=== PATIENT | female | born 1940 | race Hispanic/Latino ===

== ENCOUNTER 2024-03-07 17:48 | Inpatient (IN) | payer MEDICARE, OTHER ==
[~2024-03-07] VITALS: Ht 149.9 cm; Wt 52.6 kg
[~2024-03-07 17:48] MED LIST: AEC81 PO; CHOL200059 PO; CLOP75TA32 PO; CYAN100084 PO; FISH1CAP49 PO; LISI40TA9 PO; MULT-1039 PO; SIMV-43 PO; VITA400T9 PO
--- NOTE | 2024-03-07 18:00 | NUR ---
PT JUST NOW PLACED IN MY ED BED 9 BY [facility]
--- NOTE | 2024-03-07 18:18 | NUR ---
EMS: NTG SL X 1 ASA 324MG
[2024-03-07] MEDS: LAbetaLOL 20MG SYG IV ONE (18:21)
[2024-03-07 18:24] LABS: BASOPHILS # (AUTO) 0.06 K/uL (0.00-0.20); BASOPHILS % (AUTO) 0.8 % (0.0-5.0); EOSINOPHILS # (AUTO) 0.16 K/uL (0.00-0.70); EOSINOPHILS % (AUTO) 2.2 % (0.0-8.0); HEMATOCRIT 42.6 % (36-48); IMMATURE GRANULOCYTE ABSOLUTE 0.03 K/uL (0-1); LYMPHOCYTES % (AUTO) 26.6 % (21.0-51.0); MEAN CORPUSCULAR HEMOGLOBIN 28.9 pg (27.0-33.0); MEAN CORPUSCULAR HGB CONC 32.9 g/dL (32.0-36.0); MONOCYTES # (AUTO) 0.7 K/uL (0.1-1.0); MONOCYTES % (AUTO) 9.9 % (3.0-13.0); NEUTROPHILS # (AUTO) 4.4 K/uL (1.8-7.7); NEUTROPHILS % (AUTO) 60.1 % (40.0-77.0); PLATELET COUNT (AUTO) 243 K/uL (130-400); RED BLOOD CELL COUNT(AUTO) 4.84 MIL/uL (4.00-5.50); RED CELL DISTRIBUTION WIDTH 12.5 % (11.0-15.5); WHITE BLOOD COUNT (AUTO) 7.4 K/uL (4.8-10.8)
[2024-03-07 18:36] LABS: CREATININE 0.9 mg/dL (0.5-1.0); POTASSIUM 3.8 mmol/L (3.5-5.1)
[2024-03-07 18:51] LABS: B-TYPE NATRIURETIC PEPTIDE 58 pg/mL (0-100)
[2024-03-07 18:56] LABS: MAGNESIUM 2.1 mg/dL (1.80-2.40)
--- NOTE | 2024-03-07 19:09 | NUR ---
REPORT ENDORSED TO JJ HODGE
[2024-03-07 19:12] LABS: APPEARANCE,URINE CLEAR (CLEAR); BILIRUBIN,URINE NEGATIVE (NEGATIVE); COLOR,URINE COLORLESS (YELLOW); GLUCOSE, URINE (UA) 50 mg/dL (NEGATIVE); KETONES,URINE NEGATIVE (NEGATIVE); LEUKOCYTE ESTERASE ,URINE NEGATIVE Leu/uL (NEGATIVE); NITRATE,URINE NEGATIVE (NEGATIVE); OCCULT BLOOD,URINE NEGATIVE (NEGATIVE); PH,URINE 7.5 (5.0-8.0); PROTEIN,URINE 30 mg/dL (NEGATIVE); UROBILINOGEN,URINE 0.2 mg/dL (0.2-1.0)
[2024-03-07 19:21] LABS: ADD UA MICROSCOPIC YES
--- NOTE | 2024-03-07 19:22 | HMCIMG ---
CHEST 1VW HISTORY: Chest pain COMPARISON: January 09, 2014 FINDINGS: A frontal projection of the chest was obtained. Prominent interstitial markings are seen. The heart is normal in size. Degenerative changes are seen. Aortic calcifications are seen. Degenerative changes are seen. IMPRESSION: 1. Prominent interstitial markings. Degenerative changes are seen.
[2024-03-07] MEDS ORDERED: HEParin 25,000 UNITS/250ML D5W 250 ML IV SCH (20:30)
--- NOTE | 2024-03-07 20:51 | NUR ---
ROSALIO COOPER HOLD HEPARIN IV FOR NOW.
--- NOTE | 2024-03-07 21:01 | ERN ---
General Chief Complaint: Chest Pain Stated Complaint: CHEST PAIN Time Seen by MD: 17:53 Time Seen by Midlevel: 17:53 Source: patient History of Present Illness Initial Comments Patient is an 83-year-old female with a past medical history of hypertension and hyperlipidemia presenting to the emergency department via EMS for evaluation of chest pain. Patient states she had walked outside of her home through [address] when she developed left-sided chest pain that radiates to her back. She immediately called 911. She was found to have a blood pressure of over 230 on scene. She was given nitroglycerin sublingual with improvement of chest pain. Initial blood pressure on arrival was 232/93. She states she usually takes losartan and metoprolol at home but usually takes him at night. She has not taken her blood pressure medication today. Denies having a history of atrial fibrillation. She does report having a cardiac stent placed several years ago. Patient was followed by guncotton packer Dr. Carlo Bassett Home Meds: Losartan and metoprolol Allergies: Coded Allergies: No Known Drug Allergies (Unverified Allergy, Unknown, 01/09/14) Home Meds Reported Medications Cholecalciferol (Vitamin D3) (Vitamin D-3) 2,000 Unit Tablet, 2000 UNIT PO DAILY, TAB 01/10/14 Vitamin E Mixed (Vitamin E) 400 Unit Tablet, 400 UNIT PO DAILY, TAB 01/10/14 Cyanocobalamin (Vitamin B-12) (B-12) 1,000 Mcg Tablet.er, 1000 MCG PO DAILY, TAB 01/10/14 Aspirin (ASPIRIN 81 MG ECTAB) 81 Mg Ectab, 81 MG PO HS, TAB.EC 01/10/14 Multivit with Calcium,Iron,Min (Women's Daily Multivitamin) 1 Each Tablet, 1 EACH PO DAILY, TAB 01/10/14 [place]-3 Fatty Acids/Fish Oil (Fish Oil 1,000 mg Capsule) 1 Each Capsule, 1 EACH PO DAILY, CAP 01/10/14 Simvastatin (Simvastatin) 20 Mg Tablet, 20 MG PO HS, #90 01/10/14 Lisinopril (Lisinopril) 40 Mg Tablet, 40 MG PO HS, #90 01/10/14 Clopidogrel Bisulfate (Clopidogrel) 75 Mg Tablet, 75 MG PO DAILY, #30 01/10/14 Past Medical History Past Medical History: High Cholesterol, Heart Disease, Hypertension Past Surgical History: CABG ROS Dictation CONSTITUTIONAL: Negative except for HPI HEAD/FACE: Negative except for HPI EENT: Negative except for HPI RESPIRATORY: Negative except for HPI GASTROINTESTINAL/ABDOMINAL: Negative except for HPI GENITOURINARY: Negative except for HPI MUSCULOSKELETAL: Negative except for HPI INTEGUMENTARY: Negative except for HPI NEUROLOGICAL/PSYCH: Negative except for HPI HEMATOLOGIC/LYMPHATIC: Negative except for HPI All Systems Negative, Except as noted above. 13 point review of systems assessed and all negative except for above. Physical Exam Physical Exam Dictation Vital Signs reviewed General Appearance: Alert, oriented x 3, no acute distress, well developed, nourished. Head and Face: non-traumatic. Eyes: PERRL, pink conjunctivas, eyelid no trauma, anterior chamber with arcus senilis. Ears: Pinnas intact and no signs of trauma or erythema ear canals clear and no discharge TM no erythema Nose: No discharge, no bleeding. Oropharynx: Mouth normal, tongue pink, pharynx clear,no erythema, tonsils no exudates, no abscesses noted, mucous membrane moist Neck: Supple, non-tender, no thyromegaly, no masses, no JVD, no bruits Breast:Deferred Chest:No tenderness, no crepitus, no paradoxical movement, no retractions Lungs:Clear, well-ventilated, symmetric, no rales, no wheezing, no rhonchi, no stridor, good breath sounds bilaterally Heart: Regular rate, regular rhythm, no murmur, no gallops Vascular: no peripheral edema, Abdomen: Soft, positive bowel sounds, nondistended, no guarding, nontender, no rebound, no masses no hepatomegaly, no splenomegaly, no Bartlett's sign, no hernias. Rectal: Deferred Genital: Deferred Neurological: Normal speech, motor function intact, sensory function intact Musculoskeletal: Neck nontender, full range of motion, back nontender, full range of motion, Extremities: nontender, full range of motion Skin: Color pink, dry, no turgor, no rash, no lacerations, no abrasions, no contusions. Lymphatic: Deferred Results Laboratory and Microbiology Lab and Micro Result Laboratory Tests Test 03/07/24 18:19 03/07/24 18:46 03/07/24 19:12 White Blood Count 7.4 K/uL (4.8-10.8) Red Blood Count 4.84 MIL/uL (4.00-5.50) Hemoglobin 14.0 g/dL (12.0-16.0) Hematocrit 42.6 % (36-48) Mean Corpuscular Volume 88.0 fL (79-99) Mean Corpuscular Hemoglobin 28.9 pg (27.0-33.0) Mean Corpuscular Hemoglobin Concent 32.9 g/dL (32.0-36.0) Red Cell Distribution Width 12.5 % (11.0-15.5) Platelet Count 243 K/uL (130-400) Mean Platelet Volume 11.2 fL (7.5-10.5) H Immature Granulocyte % (Auto) 0.4 % (0-1) Neutrophils (%) (Auto) 60.1 % (40.0-77.0) Lymphocytes (%) (Auto) 26.6 % (21.0-51.0) Monocytes (%) (Auto) 9.9 % (3.0-13.0) Eosinophils (%) (Auto) 2.2 % (0.0-8.0) Basophils (%) (Auto) 0.8 % (0.0-5.0) Neutrophils # (Auto) 4.4 K/uL (1.8-7.7) Lymphocytes # (Auto) 2.0 K/uL (1.0-4.8) Monocytes # (Auto) 0.7 K/uL (0.1-1.0) Eosinophils # (Auto) 0.16 K/uL (0.00-0.70) Basophils # (Auto) 0.06 K/uL (0.00-0.20) Absolute Immature Granulocyte (auto 0.03 K/uL (0-1) Nucleated Red Blood Cells 0.0 % (0.0-0.19) Sodium Level 140 mmol/L (136-145) Potassium Level 3.8 mmol/L (3.5-5.1) Chloride Level 101 mmol/L (101-111) Carbon Dioxide Level 33 mmol/L (21-32) H Blood Urea Nitrogen 15 mg/dL (7-18) Creatinine 0.9 mg/dL (0.5-1.0) Glomerular Filtration Rate Calc 64 mL/min (>90) Random Glucose 137 mg/dL (70-105) H Total Calcium 9.5 mg/dL (8.5-10.1) Magnesium Level 2.10 mg/dL (1.80-2.40) Total Creatine Kinase 52 U/L (21-232) # Troponin I High Sensitivity 136 ng/L (4-50) *H 383 ng/L (4-50) *H B-Type Natriuretic Peptide 58 pg/mL (0-100) Urine Color COLORLESS (YELLOW) Urine Appearance CLEAR (CLEAR) Urine pH 7.5 (5.0-8.0) Urine Specific [place] 1.005 (1.001-1.031) Urine Protein 30 mg/dL (NEGATIVE) H Urine Glucose (UA) 50 mg/dL (NEGATIVE) H Urine Ketones NEGATIVE mg/dL (NEGATIVE) Urine Occult Blood NEGATIVE (NEGATIVE) Urine Nitrate NEGATIVE (NEGATIVE) Urine Bilirubin NEGATIVE mg/dL (NEGATIVE) Urine Urobilinogen 0.2 mg/dL (0.2-1.0) Urine Leukocyte Esterase NEGATIVE Oksana/uL Urine RBC 2-5 /HPF (0-1) H Urine WBC 2-5 /HPF (0-1) H Urine Bacteria None /HPF (None Seen) Labs Reviewed?: Yes MDM MDM: Patient is an 83-year-old female with a past medical history of hypertension and hyperlipidemia presenting to the emergency department via EMS for evaluation of chest pain. Patient states she had walked outside of her home through [address] when she developed left-sided chest pain that radiates to her back. She immediately called 911. She was found to have a blood pressure of over 230 systolic on scene. She was given nitroglycerin sublingual with improvement of chest pain. Initial blood pressure on arrival was 232/93. She states she usually takes losartan and metoprolol at home but usually takes him at night. She has not taken her blood pressure medication today. Denies having a history of atrial fibrillation. She does report having a cardiac stent placed several years ago. Patient was followed by guncotton packer Dr. Carlo Bassett. On arrival patient is in no acute distress. Her initial blood pressure was 232/93. Patient was given 10 mg of labetalol IV with improvement in blood pressure. Initial EKG showed atrial fibrillation however patient de nies having a history of AFib. She is not on any blood thinners. Repeat blood pressure was 181/78. Her initial blood work was remarkable for an elevated troponin of 136. A repeat troponin was performed 1 hour after the initial one and it appears to be trending upward to 383. Heparin was ordered however was withheld until her blood pressure and chest pain were controlled. She was given another dose of 0.4 mg of nitro sublingual. The case was discussed with benchmark service who agrees to admit the patient for further observation and management. Differential diagnosis: ACS, pneumonia, pneumothorax, Rationale: Tests considered and ordered secondary to shared decision making include: Previous outside records reviewed: Old ER visits. Risk of complication and/or morbidity or mortality of patient management: None Medications-Per medication reconciliation Need for hospitalization: Patient does meet criteria for hospitalization. Need for emergency major/minor surgery: No There are no social concerns with this patient. Prescription drug management Prescriptions will include symptomatic care Patient's prior external medical records from other ER visits were reviewed by me as indicated. Prior testing and results from previous visits were reviewed. Prior tests were taken into account with medical decision making and resource utilization, independent historian/historians were used to obtain complete medical history. I independently interpreted the test that were performed, results were reviewed by me and considered findings on radiology if ordered. Medical management and examination interpretation discussions were had by me with other qualified healthcare professionals as indicated for the patient's care. ED Course Orders Procedure Category Date Status Time 12 Lead Ekg Tracing- EKG 03/07/24 Logged Technical 17:54 B-Type Natriuretic LAB 03/07/24 Complete Peptide 17:54 Cbc With Differential LAB 03/07/24 Complete 17:54 Basic Metabolic Panel LAB 03/07/24 Complete 17:54 Creatine Kinase, Total LAB 03/07/24 Complete 17:54 Magnesium LAB 03/07/24 Complete 17:54 Troponin I High LAB 03/07/24 Complete Sensitivity 17:54 Chest 1vw RAD 03/07/24 Resulted 17:54 Urinalysis Profile LAB 03/07/24 Complete 18:02 Labetalol 20mg Syg PHA 03/07/24 Complete (Trandate 20mg Syg) 18:30 Troponin I High LAB 03/07/24 Complete Sensitivity 18:59 Heparin 25,000 PHA 03/07/24 In Process Units/250ml D5w 20:30 Nitroglycerin 0.4mg PHA 03/07/24 In Process Sl Tab (Nitrostat) 21:00 Current Medications Medications (Trade) Dose Ordered Sig/Osiel Route PRN Reason Start Time Stop Time Status Last Admin Dose Admin Heparin Sodium/ Dextrose 250 ml @ 0 mls/hr PROTOCOL IV 03/07/24 20:30 04/06/24 20:29 Labetalol HCl (TRANdate 20MG SYG) 10 mg ONCE ONCE IV 03/07/24 18:30 03/07/24 18:31 DC 03/07/24 18:21 Nitroglycerin (Nitrostat) 0.4 mg AD PRN SL CHEST PAIN 03/07/24 21:00 04/06/24 20:59 Vital Signs Date Time Temp Pulse Resp B/P (MAP) Pulse Ox O2 Delivery O2 Flow Rate FiO2 03/07/24 20:07 98.4 88 18 98/64 98 Room Air* 0 03/07/24 19:52 75 18 199/84 96 Room Air* 0 03/07/24 19:28 80 18 180/75 95 Room Air* 0 03/07/24 18:52 79 16 181/78 96 Room Air* 0 03/07/24 18:21 232/93 03/07/24 18:17 91 19 232/93 98 Room Air* 0 03/07/24 17:51 98.4 92 20 239/105 98 Room Air [address] [address] IMAGING REPORT Signed PATIENT: LISET JEFF MR#: [id number] : 1940 SEX: F AGE: 83 LOCATION: [facility] ORDER 53 STATUS: REG ER REPORT#: [id number] SERVICE 53 REASON: chest pain ORDERING PHYSICIAN: JANA LUNA PROCEDURE: CXR1VW - CHEST 1VW CHEST 1VW HISTORY: Chest pain COMPARISON: January 09, 2014 FINDINGS: A frontal projection of the chest was obtained. Prominent interstitial markings are seen. The heart is normal in size. Degenerative changes are seen. Aortic calcifications are seen. Degenerative changes are seen. IMPRESSION: 1. Prominent interstitial markings. Degenerative changes are seen. DICTATED BY: FRANK FIGUEROA MD DATE: 03/07/241917 ELECTRONICALLY SIGNED BY: FRANK FIGUEROA MD DATE: 03/07/241921 HEART Score Response (Comments) Value History: High suspicion (+2) 2 EKG: Repolarization changes 1 Age: > 65yrs (+2) 2 Risk Factors: 3+ risk factors (+2) 2 Initial Troponin: 1-3x Normal Limit (+1) 1 HEART Score Risk: High Risk for MACE (7-10) Total 8 DX & DISP Disposition: Inpatient Decision to Admit Date: Mar 07, 2024 Decision to Admit Time: 21:06 Departure Impression: Primary Impression: Elevated troponin Additional Impressions: Hypertensive urgency, New onset atrial fibrillation Condition: Stable Referrals: PETRA HICKS MD (PCP) I have reviewed the case, and I agree with, Diagnosis and Plan I performed the substantive portion of the visit. I have reviewed and personally made and approve the management plan that is documented in the note by myself or the JAVON. I acknowledge for responsibility for the patient's management plan. JANA LUNA Mar 07, 2024 21:01
[2024-03-07] MEDS: NITROGLYCERIN 0.4 MG SL TAB SL PRN (21:07)
[2024-03-07] MEDS ORDERED: acetaMINOPHEN 650 MG SUPPOSITORY RC PRN (22:00)
[2024-03-07] MEDS ORDERED: acetaMINOPHEN 325 MG TAB PO PRN (22:00)
[2024-03-07] MEDS ORDERED: ondanSETRON 4MG INJ IVP PRN (22:00)
[2024-03-07] MEDS ORDERED: TEMAZepam 15 MG CAPSULE PO PRN (22:00)
[2024-03-07] MEDS ORDERED: LACTULOSE 20 GM/30 ML UDCUP PO PRN (22:00)
--- NOTE | 2024-03-07 23:11 | HP ---
[facility] HISTORY & PHYSICAL Date Patient Seen: Mar 07, 2024 Time of Visit: 23:11 Supervising Physician: Dr. Branch Primary Care Physician: PETRA HICKS MD (PCP) Outpatient Specialists: Dr. Carlo Bassett. Inpatient Consults: [facility] PROBLEM LIST: NSTEMI, POA Hypertension emergency, POA Atrial fibrillation, POA Coronary artery disease s/p CABG Hypercholesteremia HPI: Ms. Marcelo is an 83-year-old female with a past medical history of hypertension, hyperlipidemia, CAD with cardiac stent and afib who presented to the emergency department via EMS for evaluation of chest pain. Patient stated she had walked outside of her home through [address] when she developed left-sided chest pain that radiates to her back. She immediately called 911. She was found to have a blood pressure of over 230 on scene. She was given nitroglycerin sublingual with improvement of chest pain. Blood pressure on arrival to ED was 232/93. She stated she takes losartan and metoprolol both every night. She has not taken her blood pressure medication today. Patient reports that she had atrial fibrillation many years ago, but the AFib resolved, and has had AFib since then. Patient was followed by senior java developer Dr. Carlo Bassett. Chest x-ray: Prominent interstitial markings. Degenerative changes are seen. Initial troponin 136, repeat troponin 383. EKG: Atrial fibrillation, heart rate 83. Repeat EKG: Sinus rhythm. ED provider reports that patient was given labetalol 10 mg IV and is going to start heparin drip. ED provider request patient be admitted with the diagnosis of elevated troponins, hypertensive emergency, new onset AFib. I went to assess patient at bedside in ED 9. RN reported that Heparin IV drip was ordered by ALLISON Cline but was cancelled by him, and was not administered because of the very high blood pressure. Patient denied any chest pain. She reports that after the nitro sublingually was administered her pain subsided. The patient mentioned that she had cataract surgery on January 29 and then on February 13, 2024 again. I informed the patient of a labs, diagnostics, and plan of care. The patient verbalized understanding and is in agreement with the plan. Plan and assessment are listed below. PAST MEDICAL HX: see above PAST SURGICAL HX: CABG SOCIAL HISTORY: No tobacco, ETOH, or illicit drug use Coded Allergies: No Known Drug Allergies (Unverified Allergy, Unknown, 01/09/14) REVIEW OF SYSTEMS: 12 point ROS reviewed with patient. Pertinent positives mentioned above. Otherwise negative. PHYSICAL EXAM: GENERAL: alert, weak, awake oriented x 3 HEENT: EOMI, Sclera non icteric, moist mucosa NECK: Supple, no JVD, trachea midline LUNGS: Clear breath sounds bilaterally. No wheezes HEART: Regular rate and rhythm. Normal S1 and S2, without murmurs ABD: Abdomen soft, nontender. Bowel sounds present EXT: No clubbing cyanosis or edema NEURO: Alert and oriented x3, follows commands Vital Signs (last 8hr) Date Time Temp Pulse Resp B/P (MAP) Pulse Ox O2 Delivery O2 Flow Rate FiO2 03/07/24 22:07 71 18 155/63 95 Room Air* 0 03/07/24 21:10 76 18 170/69 96 Room Air* 0 03/07/24 20:07 98.4 88 18 98/64 98 Room Air* 0 03/07/24 19:52 75 18 199/84 96 Room Air* 0 03/07/24 19:28 80 18 180/75 95 Room Air* 0 03/07/24 18:52 79 16 181/78 96 Room Air* 0 03/07/24 18:21 232/93 03/07/24 18:17 91 19 232/93 98 Room Air* 0 03/07/24 17:51 98.4 92 20 239/105 98 Room Air 0 LABS: Hematology Labs: Test 03/07/24 18:19 Range/Units White Blood Count 7.4 4.8-10.8 K/uL Red Blood Count 4.84 4.00-5.50 MIL/uL Hemoglobin 14.0 12.0-16.0 g/dL Hematocrit 42.6 36-48 % Mean Corpuscular Volume 88.0 79-99 fL Mean Corpuscular Hemoglobin 28.9 27.0-33.0 pg Mean Corpuscular Hemoglobin Concent 32.9 32.0-36.0 g/dL Red Cell Distribution Width 12.5 11.0-15.5 % Platelet Count 243 130-400 K/uL Mean Platelet Volume 11.2 H 7.5-10.5 fL Immature Granulocyte % (Auto) 0.4 0-1 % Neutrophils (%) (Auto) 60.1 40.0-77.0 % Lymphocytes (%) (Auto) 26.6 21.0-51.0 % Monocytes (%) (Auto) 9.9 3.0-13.0 % Eosinophils (%) (Auto) 2.2 0.0-8.0 % Basophils (%) (Auto) 0.8 0.0-5.0 % Neutrophils # (Auto) 4.4 1.8-7.7 K/uL Lymphocytes # (Auto) 2.0 1.0-4.8 K/uL Monocytes # (Auto) 0.7 0.1-1.0 K/uL Eosinophils # (Auto) 0.16 0.00-0.70 K/uL Basophils # (Auto) 0.06 0.00-0.20 K/uL Absolute Immature Granulocyte (auto 0.03 0-1 K/uL Nucleated Red Blood Cells 0.0 0.0-0.19 % Chemistry Labs: Test 03/07/24 19:12 03/07/24 18:19 Range/Units Troponin I High Sensitivity 383 *H 4-50 ng/L Sodium Level 140 136-145 mmol/L Potassium Level 3.8 3.5-5.1 mmol/L Chloride Level 101 101-111 mmol/L Carbon Dioxide Level 33 H 21-32 mmol/L Blood Urea Nitrogen 15 7-18 mg/dL Creatinine 0.9 0.5-1.0 mg/dL Glomerular Filtration Rate Calc 64 >90 mL/min Random Glucose 137 H 70-105 mg/dL Total Calcium 9.5 8.5-10.1 mg/dL Magnesium Level 2.10 1.80-2.40 mg/dL Total Creatine Kinase 52 # 21-232 U/L B-Type Natriuretic Peptide 58 0-100 pg/mL DIAGNOSTICS / RADIOLOGY RESULTS: [ ] PLAN Admit patient to PCCU with continuous telemetry monitoring. Start heparin IV drip per protocol. Nitroglycerin 1 inch to chest wall q.8 hours. Aspirin 324 mg p.o. now, then aspirin 81 mg p.o. daily. Atorvastatin 40 mg p.o. daily. Resume home medications: Metoprolol and losartan. Troponin levels and EKGs series. Cardiology consult in the a.m.. 2D echo in the a.m. with heart clinic to read. P.r.n. medications for pain management, fever, nausea, vomiting, constipation, hypertension. Oxygen supplementations as needed to maintain oxygen levels equal to or greater than 92%. Blood pressure checks every4 hours and as needed. Reconcile home medications once available. Glucometer checks before meals and at bedtime with insulin regular sliding scale. Monitor renal and liver function, monitor electrolytes and treat accordingly. A.m. labs: CBC, BNP, troponin, Mag, phos, A1c, TSH. DVT and GI prophylaxis: Heparin and Pepcid. NEURO: Minimize central acting medications as possible. Maintain fall precautions, adequate lighting during the day PULMONARY: Supplemental 02 as needed. Maintain aspiration precautions at all times CARDIOVASCULAR: Follow hemodynamics. Vital signs per facility protocol GI & NUTRITION: Continue with nutritional support. Continue stool softeners and laxatives as needed. KIDNEYS & ELECTROLYTES: Strict monitoring of intake, output and overall fluid balance. Avoid nephrotoxic medications to the extent possible. Medications to be dosed according to renal function. Monitor electrolytes and replace as needed ENDOCRINE: Maintain blood glucose between 100-180 at all times. Hypoglycemia protocol in place INFECTIOUS DISEASE: Trend temperature, WBC and procalcitonin level Follow cultures, deescalate antibiotics as soon as possible. Panculture if new onset fever ONCOLOGY/HEMATOLOGY/COAGULATION: Monitor for s/s of bleeding Monitor hemoglobin, coagulation studies as needed SKIN: Pressure ulcer prevention per facility protocol Specialty mattress ORTHO/REHAB: Continue PT/OT Prophylaxis: Continue GI and DVT prophylaxis Code Status: Full Resuscitation Disposition: CROW BRADY Mar 07, 2024 23:11
[2024-03-07] MEDS: NITROGLYCERIN 1GM OINT 1 INCH/1GM TD SCH (23:40)
[2024-03-07] MEDS: ASPIRIN 81MG CHEW TAB PO ONE (23:40)
[2024-03-07] MEDS: atorVAStatin 40 MG TABLET PO SCH (23:40)
[2024-03-08 04:16] LABS: HEMATOCRIT 38.6 % (36-48); MEAN CORPUSCULAR HEMOGLOBIN 29.8 pg (27.0-33.0); MEAN CORPUSCULAR HGB CONC 33.4 g/dL (32.0-36.0); MEAN CORPUSCULAR VOLUME 89.1 fL (79-99); RED BLOOD CELL COUNT(AUTO) 4.33 MIL/uL (4.00-5.50); RED CELL DISTRIBUTION WIDTH 12.6 % (11.0-15.5)
[2024-03-08 04:47] LABS: CREATININE 0.8 mg/dL (0.5-1.0); MAGNESIUM 2.1 mg/dL (1.80-2.40); PHOSPHORUS 3.8 mg/dL (2.5-4.9); POTASSIUM 4.1 mmol/L (3.5-5.1); THYROID STIMULATING HORMONE 1.58 uIU/mL (0.36-3.74)
[2024-03-08] MEDS: HEParin 5,000 UNIT VIAL IV SCH (05:14)
[2024-03-08] MEDS: HEParin 25,000 UNITS/250ML D5W 250 ML IV SCH (05:20)
[2024-03-08 05:51] LABS: INR 1.03 (0.85-1.15); PROTHROMBIN TIME 11.1 SEC (9.6-11.6)
[2024-03-08 05:52] LABS: PARTIAL THROMBOPLASTIN TIME 27.9 SEC (26.3-35.5)
--- NOTE | 2024-03-08 06:53 | EKG ---
[facility] Test Date: 2024-03-08 Test Time: 03:53:46 Pat Name: LISET JEFF Department: [facility] Room: 230 Gender: F Interventional Physician: [id number] : 1940 Requested By: CROW JONAS Order Number: [id number] Reading MD: Luis Miguel Santiago Measurements Intervals [place] Rate: 67 P: 52 CT: 189 QRS: 40 QRSD: 93 T: 61 QT: 424 QTc: 449 Interpretive Statements Sinus rhythm Low voltage, precordial leads Compared to ECG 03/07/2024 17:36:33 Low QRS voltage now present Atrial fibrillation no longer present Electronically Signed On 03-11-2024 17:21:33 POLE PEELING MACHINE OPERATOR HELPER by Luis Miguel Santiago Please click the below link to view image of tracing.
--- NOTE | 2024-03-08 06:53 | EKG ---
[facility] Test Date: 2024-03-07 Test Time: 17:36:33 Pat Name: LISET JEFF Department: [facility] Room: 230 Gender: F Band Scroll Saw Operator: [id number] : 1940 Requested By: JANA LUNA Order Number: [id number] Reading MD: Luis Miguel Santiago Measurements Intervals [place] Rate: 83 P: 0 PA: 0 QRS: 86 QRSD: 99 T: 60 QT: 380 QTc: 448 Interpretive Statements Normal Sinus Rhythm STT abnormality, possible ischemia No previous ECG available for comparison Electronically Signed On 03-11-2024 17:18:29 SUPERINTENDENT NONSELLING by Luis Miguel Santiago Please click the below link to view image of tracing.
[2024-03-08] MEDS: INSULIN humuLIN R 100 UNIT/ML 3ML SQ SCH (07:30)
--- NOTE | 2024-03-08 07:45 | NUR ---
[facility] [employer] NOTIFIED RENEE SIMON CHEMICAL SALES REPRESENTATIVE called back notified of elevated tropinion new orders given
[2024-03-08 08:00] VITALS: BP 158/65; PULSE 74; RESP 20; TEMP 98.1
--- NOTE | 2024-03-08 08:25 | NUR ---
Aparna Talbert NP from Dr Espinoza notified of consult
[2024-03-08] MEDS: metoPROLOL tartRATE 50 MG TAB PO SCH (09:40)
[2024-03-08] MEDS: ASPIRIN 81MG CHEW TAB PO SCH (09:43)
[2024-03-08 11:22] LABS: INR 1.11 (0.85-1.15); PROTHROMBIN TIME 11.9 SEC (9.6-11.6)
[2024-03-08 11:47] LABS: PARTIAL THROMBOPLASTIN TIME > 139.0 SEC (26.3-35.5)
--- NOTE | 2024-03-08 11:50 | NUR ---
DR ESTEVEZ WEAVING SUPERVISOR AT BEDSIDE
--- NOTE | 2024-03-08 11:51 | CONS ---
Cardiology Consult Note Attending Clinical Business Manager: Dr. Surjit Espinoza Primary Clinical Business Manager: Dr. Carlo Bassett Consulting Physician: [facility] Date of Service: 03/08/2024 Reason for Consult: ACS-NSTEMI HPI: This is an 83y/o female with a past medical history of HTN, HLP, CAD s/p PCI with MOY placement (Promus 2.5x24 mm) done on 01/10/2014, chronically occluded LICA, and PAD who presents with chest pain of 1 day in duration. The symptoms began spontaneously and over the ensuing timeframe her symptoms were constant and progressively worsened. The symptoms developed after the patient took out the trash and the pain was described as pressure like in quality, 8/10 in intensity, and radiated to the back, left shoulder, and left neck/jaw. The symptoms were persistent for > 1 hours and were not exacerbated or alleviated by anything. Associated symptoms include uncontrolled blood pressure (SBP>220 mmHg). Pertinent negatives include headache, dizziness, syncope, palpitations, shortness of breath, PND, orthopnea, abdominal pain, nausea, vomiting, weight gain, lower extremity swelling, diaphoresis, fever, or chills. The patient's progression of symptoms prompted her to seek a higher level of care. While in the ED, laboratory data identified an elevated HS troponin I level. Cardiology was consulted for treatment recommendations. PMH: Listed above PSH: Listed above FH: Significant for HTN, HLP, DMII SH: Denies alcohol, tobacco, or illicit drug use. Allergies: Coded Allergies: No Known Drug Allergies (Unverified Allergy, Unknown, 01/09/14) Review of systems: General: Denies fever or chills. HEENT: Denies changes in vision, earache or sore throat. Neck: Denies pain or stiffness. Cardio: As per the HPI Pulm: Denies SOB, coughing or wheezing. GI: Denies abdominal pain, nausea, vomiting, diarrhea, or constipation. MSK: Denies decreased ROM or joint pain. Heme: Denies anemia, easy bruising, or bleeding. Neuro: Denies headache, dizziness, or syncope. Psyche: Denies anxiety, depression, or suicidal ideation. Physical Exam: Vital Signs Date Time Temp Pulse Resp B/P (MAP) Pulse Ox O2 Delivery O2 Flow Rate FiO2 03/08/24 09:50 90 14 146/60 95 Room Air* 0 21 03/08/24 08:00 98.1 General: Alert and oriented x 3. NAD. HEENT: NC/AT. Oral mucosa is moist. Neck: No masses, JVD, or carotid bruits. Lungs: NRD. SCM. Bilateral air entry. CTA. No obvious wheezing, rales or rhonchi. Cardio: Regular rate. Normal S1 and S2. +S4. No obvious murmurs, gallops, or rubs noted. PMI was not displaced. Abdomen: Soft. NT. ND. Normal active bowel sounds x 4 quadrants. Extremities: No edema, clubbing, or cyanosis. Diminished pulses noted throughout. Neuro: CN II-XII were grossly intact. No obvious focal deficits. Labs: Laboratory Tests Test 03/07/24 18:19 03/07/24 18:46 03/07/24 19:12 03/08/24 03:49 Range/Units White Blood Count 7.4 8.0 4.8-10.8 K/uL Red Blood Count 4.84 4.33 4.00-5.50 MIL/uL Hemoglobin 14.0 12.9 12.0-16.0 g/dL Hematocrit 42.6 38.6 36-48 % Mean Corpuscular Volume 88.0 89.1 79-99 fL Mean Corpuscular Hemoglobin 28.9 29.8 27.0-33.0 pg Mean Corpuscular Hemoglobin Concent 32.9 33.4 32.0-36.0 g/dL Red Cell Distribution Width 12.5 12.6 11.0-15.5 % Platelet Count 243 226 130-400 K/uL Mean Platelet Volume 11.2 H 11.6 H 7.5-10.5 fL Immature Granulocyte % (Auto) 0.4 0-1 % Neutrophils (%) (Auto) 60.1 40.0-77.0 % Lymphocytes (%) (Auto) 26.6 21.0-51.0 % Monocytes (%) (Auto) 9.9 3.0-13.0 % Eosinophils (%) (Auto) 2.2 0.0-8.0 % Basophils (%) (Auto) 0.8 0.0-5.0 % Neutrophils # (Auto) 4.4 1.8-7.7 K/uL Lymphocytes # (Auto) 2.0 1.0-4.8 K/uL Monocytes # (Auto) 0.7 0.1-1.0 K/uL Eosinophils # (Auto) 0.16 0.00-0.70 K/uL Basophils # (Auto) 0.06 0.00-0.20 K/uL Absolute Immature Granulocyte (auto 0.03 0-1 K/uL Nucleated Red Blood Cells 0.0 0.0 0.0-0.19 % Sodium Level 140 143 136-145 mmol/L Potassium Level 3.8 4.1 3.5-5.1 mmol/L Chloride Level 101 105 101-111 mmol/L Carbon Dioxide Level 33 H 33 H 21-32 mmol/L Blood Urea Nitrogen 15 15 7-18 mg/dL Creatinine 0.9 0.8 0.5-1.0 mg/dL Glomerular Filtration Rate Calc 64 74 >90 mL/min Random Glucose 137 H 121 H 70-105 mg/dL Total Calcium 9.5 9.3 8.5-10.1 mg/dL Magnesium Level 2.10 2.10 1.80-2.40 mg/dL Total Creatine Kinase 52 # 21-232 U/L Troponin I High Sensitivity 136 *H 383 *H 5138 *H 4-50 ng/L B-Type Natriuretic Peptide 58 0-100 pg/mL Urine Color COLORLESS YELLOW Urine Appearance CLEAR CLEAR Urine pH 7.5 5.0-8.0 Urine Specific [place] 1.005 1.001-1.031 Urine Protein 30 H NEGATIVE mg/dL Urine Glucose (UA) 50 H NEGATIVE mg/dL Urine Ketones NEGATIVE NEGATIVE mg/dL Urine Occult Blood NEGATIVE NEGATIVE Urine Nitrate NEGATIVE NEGATIVE Urine Bilirubin NEGATIVE NEGATIVE mg/dL Urine Urobilinogen 0.2 0.2-1.0 mg/dL Urine Leukocyte Esterase NEGATIVE NEGATIVE Oksana/uL Urine RBC 2-5 H 0-1 /HPF Urine WBC 2-5 H 0-1 /HPF Urine Bacteria None None Seen /HPF Phosphorus Level 3.8 2.5-4.9 mg/dL Thyroid Stimulating Hormone (TSH) 1.58 0.36-3.74 uIU/mL Test 03/08/24 05:25 03/08/24 09:43 Range/Units Prothrombin Time 11.1 11.9 H 9.6-11.6 SEC Prothromb Time International Ratio 1.03 1.11 0.85-1.15 Activated Partial Thromboplast Time 27.9 Pending Troponin I High Sensitivity 3362 *H 4-50 ng/L Assessment: -ACS-NSTEMI -Hypertensive emergency -CAD s/p PCI with MOY placement (Promus 2.5x24 mm) done on 01/10/2014 -HTN -HLP -Chronically occluded LICA -PAD Plan: 1. ACS-NSTEMI -Stable -Cardiac enzymes-HS troponin I: 136>383>5138>3362 -The patient presents with chest pain of 1 day in duration with associated uncontrolled HTN. -The above mentioned findings are diagnostic for ACS-NSTEMI. As a result, we will start her on goal directed ACS-NSTEMI treatment which includes aspirin 81 mg daily, clopidogrel 300 mg x 1 followed by 75 mg daily, IV heparin infusion (ACS protocol), metoprolol succinate 50 mg daily, nitro ointment Q8H, and atorvastatin 40 mg QHS. -In order to further evaluate her symptoms, we will refer her for a C/coronary angiogram with possible intervention. The risks and benefits of the procedure have been explained to the patient and she wishes to proceed. -The procedure will be schedule for tomorrow, to be done by Dr. Carlo Bassett or another [facility] associate. -Please keep the patient NPO after midnight and the IV heparin infusion will be stopped by the [employer] staff when they come pick the patient up for the procedure. -In addition, a 2D echocardiogram has been ordered to assess the patient's s ystolic/diastolic function and for any wall motion abnormalities. 2. Hypertensive emergency -End organ damage: ACS/elevated troponin -Peak BP: 239/105 mmHg -The patient will continue on losartan 100 mg daily and metoprolol succinate 50 mg daily. Antihypertensive therapy should be titrated in order to achieve a BP goal of less than 160/90 mmHg within the first 6 hours and less than 140/90 mmHg within 24-48 hours. Thank you for this interesting consult and allowing us to participate in the care of your patient. This case was discussed with my Supervising Physician, Dr. Surjit Espinoza, and the above mentioned plan was formulated and agreed upon. -Consult Note written by Reyna Mcdonough, MSN, VP [employer] A[employer]AIRS, AGACNP-BC. REYNA MCDONOUGH NP Mar 08, 2024 11:51
--- NOTE | 2024-03-08 12:01 | NUR ---
HEPARIN ON HOLD FOR 60MIN PER HEPARIN PROTOCOL
--- NOTE | 2024-03-08 12:15 | NUR ---
[employer] AT BEDSIDE WITH PT
--- NOTE | 2024-03-08 13:00 | NUR ---
HEPARIN RESTARTED PER PROTOCOL
[2024-03-08] MEDS: cloPIDOgrel 300MG TAB PO ONE (13:24)
[2024-03-08 14:18] VITALS: BP 144/73; PULSE 77; RESP 20; TEMP 98
[2024-03-08 16:00] VITALS: BP 144/69; PULSE 72; RESP 20; TEMP 98
--- NOTE | 2024-03-08 16:15 | PN ---
[facility] PROGRESS NOTE Date Patient Seen: Mar 08, 2024 Time of Visit: 1220 Supervising Physician: Dr. Branch Primary Care Physician: PETRA HICKS MD (PCP) Outpatient Specialists: Dr. Carlo Bassett. Inpatient Consults: [facility] PROBLEM LIST: ACS-NSTEMI, POA Hypertension emergency, POA Atrial fibrillation, POA Coronary artery disease s/p CABG Hypercholesteremia CAD s/p PCI with MOY placement 01/21/2014 INTERVAL HISTORY: 03/08 patient was seen and examined by bedside with family present. Patient is awake alert able to answer simple questions appropriately. At time of visit patient is on room air appears to be tolerating well. Patient denies any reoccurrence chest pain, denies any shortness of breadth. Patient is troponin level noted to be trending down peaked at 5138 and now trended down to 3362. Patient to continue on heparin drip. As per Cardiology plan is for a left heart catheterization with possible intervention scheduled tomorrow 01/08/2024. Appreciate cardiology's assistance we will follow recommendations. REVIEW OF SYSTEMS: 12 point ROS reviewed with patient. Pertinent positives mentioned above. Otherwise negative. PHYSICAL EXAM: GENERAL: alert, weak, awake oriented x 3 HEENT: EOMI, Sclera non icteric, moist mucosa NECK: Supple, no JVD, trachea midline LUNGS: Clear breath sounds bilaterally. No wheezes HEART: Regular rate and rhythm. Normal S1 and S2, without murmurs ABD: Abdomen soft, nontender. Bowel sounds present EXT: No clubbing cyanosis or edema NEURO: Alert and oriented x3, follows commands Vital Signs (last 8hr) Date Time Temp Pulse Resp B/P (MAP) Pulse Ox O2 Delivery O2 Flow Rate FiO2 03/08/24 14:18 98.1 77 20 144/73 96 Room Air 03/08/24 13:54 98.1 78 14 133/58 96 Room Air* 0 21 03/08/24 09:50 90 14 146/60 95 Room Air* 0 21 LABS: Hematology Labs: Test 03/08/24 03:49 03/07/24 18:19 Range/Units White Blood Count 8.0 4.8-10.8 K/uL Red Blood Count 4.33 4.00-5.50 MIL/uL Hemoglobin 12.9 12.0-16.0 g/dL Hematocrit 38.6 36-48 % Mean Corpuscular Volume 89.1 79-99 fL Mean Corpuscular Hemoglobin 29.8 27.0-33.0 pg Mean Corpuscular Hemoglobin Concent 33.4 32.0-36.0 g/dL Red Cell Distribution Width 12.6 11.0-15.5 % Platelet Count 226 130-400 K/uL Mean Platelet Volume 11.6 H 7.5-10.5 fL Nucleated Red Blood Cells 0.0 0.0-0.19 % Immature Granulocyte % (Auto) 0.4 0-1 % Neutrophils (%) (Auto) 60.1 40.0-77.0 % Lymphocytes (%) (Auto) 26.6 21.0-51.0 % Monocytes (%) (Auto) 9.9 3.0-13.0 % Eosinophils (%) (Auto) 2.2 0.0-8.0 % Basophils (%) (Auto) 0.8 0.0-5.0 % Neutrophils # (Auto) 4.4 1.8-7.7 K/uL Lymphocytes # (Auto) 2.0 1.0-4.8 K/uL Monocytes # (Auto) 0.7 0.1-1.0 K/uL Eosinophils # (Auto) 0.16 0.00-0.70 K/uL Basophils # (Auto) 0.06 0.00-0.20 K/uL Absolute Immature Granulocyte (auto 0.03 0-1 K/uL Chemistry Labs: Test 03/08/24 14:45 03/08/24 12:48 03/08/24 03:49 03/07/24 18:19 Range/Units Troponin I High Sensitivity 3110 *H 4-50 ng/L Whole Blood Glucose 177 H 70-110 MG/DL Bedside Glucose Comment Notified Nurse Sodium Level 143 136-145 mmol/L Potassium Level 4.1 3.5-5.1 mmol/L Chloride Level 105 101-111 mmol/L Carbon Dioxide Level 33 H 21-32 mmol/L Blood Urea Nitrogen 15 7-18 mg/dL Creatinine 0.8 0.5-1.0 mg/dL Glomerular Filtration Rate Calc 74 >90 mL/min Random Glucose 121 H 70-105 mg/dL Total Calcium 9.3 8.5-10.1 mg/dL Phosphorus Level 3.8 2.5-4.9 mg/dL Magnesium Level 2.10 1.80-2.40 mg/dL Thyroid Stimulating Hormone (TSH) 1.58 0.36-3.74 uIU/mL Total Creatine Kinase 52 # 21-232 U/L B-Type Natriuretic Peptide 58 0-100 pg/mL Coagulation Labs: Test 03/08/24 09:43 Range/Units Prothrombin Time 11.9 H 9.6-11.6 SEC Prothromb Time International Ratio 1.11 0.85-1.15 Activated Partial Thromboplast Time > 139.0 #*H 26.3-35.5 SEC DIAGNOSTICS / RADIOLOGY RESULTS: na PLAN Continue tele monitoring Continue heparin IV drip per protocol. Nitroglycerin 1 inch to chest wall q.8 hours. Continue [id number] mg daily Continue [id number] mg daily Atorvastatin 40 mg p.o. daily. As per cardiology's scheduled for left heart catheterization possible intervention, continue losartan 100 mg daily metoprolol succinate mg daily 2D echo in the a.m., pending P.r.n. medications for pain management, fever, nausea, vomiting, constipation, hypertension. Oxygen supplementations as needed to maintain oxygen levels equal to or greater than 92%. Blood pressure checks every4 hours and as needed. NEURO: Minimize central acting medications as possible. Maintain fall precautions, adequate lighting during the day PULMONARY: Supplemental 02 as needed. Maintain aspiration precautions at all times CARDIOVASCULAR: Follow hemodynamics. Vital signs per facility protocol GI & NUTRITION: Continue with nutritional support. Continue stool softeners and laxatives as needed. KIDNEYS & ELECTROLYTES: Strict monitoring of intake, output and overall fluid balance. Avoid nephrotoxic medications to the extent possible. Medications to be dosed according to renal function. Monitor electrolytes and replace as needed ENDOCRINE: Maintain blood glucose between 100-180 at all times. Hypoglycemia protocol in place INFECTIOUS DISEASE: Trend temperature, WBC and procalcitonin level Follow cultures, deescalate antibiotics as soon as possible. Panculture if new onset fever ONCOLOGY/HEMATOLOGY/COAGULATION: Monitor for s/s of bleeding Monitor hemoglobin, coagulation studies as needed SKIN: Pressure ulcer prevention per facility protocol Specialty mattress ORTHO/REHAB: Continue PT/OT Prophylaxis: Continue GI and DVT prophylaxis Code Status: Full Resuscitation Disposition: TBD Total time spent caring for patient 35 minutes Case discussed with supervising physician plan of care agreed upon MACKENZIE SIMON Mar 08, 2024 16:15
[2024-03-08 17:00] VITALS: O2SAT 96
[2024-03-08] MEDS: LoSARTan 100 MG TABLET PO SCH (17:45)
--- NOTE | 2024-03-08 18:46 | HMCSR ---
APPROVED REPORT EXAM: Two-dimensional and M-mode echocardiogram with Doppler and color Doppler. INDICATION ICD: Non ST-elevation DC I21.4 Atrial Fibrillation Hypertension 2D Dimensions RVDd3.3 cmLVEF(%)68.9 (>50%)LVED Vol(simp.)73.0 mL IVSd1.4 (0.7-1.1cm)FS(%)37 %LVES Vol(simp.)25.0 mL LVDd2.7 (3.8-5.6cm)LA (2D)3.4 (1.6-4.0cm)LVEF(%, simp.)66 % PWd1.4 (0.7-1.1cm)Ao Root(2D)2.7 (2.0-3.7cm)LA ESV INDEX (4CH)22.80 mL/m2 IVSs1.6 cmIVC diam1.7 cmLA ESV INDEX (2CH)21.80 mL/m2 LVDs1.7 (2.5-4.0cm)LA ESV INDEX (BP)23.80 mL/m2 PWs1.4 cm M-Mode Dimensions EPSS0.4 cm LA (MM)3.2 (1.6-4.0cm) Ao Root(MM)2.5 (2.0-3.7cm) Aortic Valve AoV VTI0.3 mAo Mean GR5.0 mmHgLVOT VTI0.22 m Mitral Valve MV E Vmax66.1 cm/sDECEL Yohw008 ms MV A Eevz296.5 cm/sP 1/2 T78 ms E/A ratio0.6MVA (PHT)2.8 cm2 TDI E/E' Wfhjdw71.2E/E' Lqryura53.4 Medial E' Peak V5.00 cm/sLateral E' Peak V4.60 cm/s Left Ventricle The left ventricle was normal in size. No regional wall motion abnormalities noted. Moderate concentr ic left ventricular hypertrophy. Left ventricular systolic function is normal, estimated LVEF is 55-6 0%. Grade 1 diastolic dysfunction. Right Ventricle The right ventricle is normal size. The right ventricular systolic function is normal. Atria The left atrium size is normal. The right atrium size is normal. Aortic Valve Aortic valve is trileaflet. The leaflets are mildly thickened and calcified. Trace aortic regurgitati on. There is no aortic valvular stenosis. Mitral Valve Mild mitral annular calcification was noted. The leaflets are mildly thickened and calcified. Trace m itral regurgitation. There is no mitral valve stenosis. Tricuspid Valve The tricuspid valve is normal in structure. Trace tricuspid regurgitation. RVSP is normal. Pulmonic Valve Pulmonic valve is not well visualized. Great Vessels The aortic root is normal in size. The IVC is normal in size and collapses >50% with inspiration. Pericardium There is no pericardial effusion. Conclusion The cardiac chambers are normal in size. Moderate concentric left ventricular hypertrophy. No regional wall motion abnormalities noted. Left ventricular systolic function is normal, estimated LVEF is 55-60%. Grade 1 diastolic dysfunction. Trace aortic regurgitation. Trace mitral regurgitation. Trace tricuspid regurgitation. PASP is normal There is no pericardial effusion.
[2024-03-08 19:39] VITALS: BP 136/63; PULSE 75; RESP 18; TEMP 97.9
[2024-03-08 19:40] VITALS: O2SAT 95
--- NOTE | 2024-03-08 20:00 | NUR ---
PT AWAKE AND ALERT, DENIES DISCOMFORT, NO SOB OR LABORED RESPIRATIONS. PT CONTINUES ON HEPARIN DRIP ORDERED. CALL LIGHT WITHIN REACH, TELEMETRY MONITORING, BED ALARM ON.
[2024-03-09] VITALS (17 sets, daily range): BP systolic 137–199; BP diastolic 66–90; PULSE 71–99; RESP 16–20; TEMP 97.5–98.5; O2SAT 95–96
--- NOTE | 2024-03-09 08:59 | PN ---
[facility] CARDIOLOGY PROGRESS NOTE Progress note dictated for Dr. Carlo Bassett Date Patient Seen: Mar 09, 2024 Time of Visit: 08:54 Problem List: ACS-NSTEMI Hypertensive emergency CAD s/p PCI with MOY placement (Promus 2.5x24 mm) done on 01/10/2014 HTN HLP Chronically occluded LICA PAD Interval History: This is an 83y/o female with a past medical history of HTN, HLP, CAD s/p PCI with MOY placement (Promus 2.5x24 mm) done on 01/10/2014, chronically occluded LICA, and PAD. The patient is resting comfortably in bed. She denies any chest pressure, chest tightness, shortness of breath, or dizziness. She is currently NPO. There is a planned left heart catheterization for this afternoon. Physical Examination: GENERAL: No acute distress. HEAD: Normal with no signs of head trauma. EYES: PERRLA, EOMI, conjunctiva and sclera normal. NECK: Supple without JVD. There is no tenderness, lymphadenopathy, or masses. No thyromegaly. Normal carotid upstrokes without bruits. LUNGS: Clear breath sounds bilaterally. No wheezes, or rhonchi. HEART: Normal rate and rhythm. Normal S1 and S2 without murmurs, gallop or rub. VASC: Decreased pulses. EXT: No clubbing, cyanosis or edema. NEURO: Awake, alert, and oriented x3. No focal neurological deficits noted. Laboratory: Hematology Labs: Test 03/08/24 03:49 03/07/24 18:19 Range/Units White Blood Count 8.0 4.8-10.8 K/uL Red Blood Count 4.33 4.00-5.50 MIL/uL Hemoglobin 12.9 12.0-16.0 g/dL Hematocrit 38.6 36-48 % Mean Corpuscular Volume 89.1 79-99 fL Mean Corpuscular Hemoglobin 29.8 27.0-33.0 pg Mean Corpuscular Hemoglobin Concent 33.4 32.0-36.0 g/dL Red Cell Distribution Width 12.6 11.0-15.5 % Platelet Count 226 130-400 K/uL Mean Platelet Volume 11.6 H 7.5-10.5 fL Nucleated Red Blood Cells 0.0 0.0-0.19 % Immature Granulocyte % (Auto) 0.4 0-1 % Neutrophils (%) (Auto) 60.1 40.0-77.0 % Lymphocytes (%) (Auto) 26.6 21.0-51.0 % Monocytes (%) (Auto) 9.9 3.0-13.0 % Eosinophils (%) (Auto) 2.2 0.0-8.0 % Basophils (%) (Auto) 0.8 0.0-5.0 % Neutrophils # (Auto) 4.4 1.8-7.7 K/uL Lymphocytes # (Auto) 2.0 1.0-4.8 K/uL Monocytes # (Auto) 0.7 0.1-1.0 K/uL Eosinophils # (Auto) 0.16 0.00-0.70 K/uL Basophils # (Auto) 0.06 0.00-0.20 K/uL Absolute Immature Granulocyte (auto 0.03 0-1 K/uL Chemistry Labs: Test 03/09/24 06:27 03/09/24 03:55 03/08/24 16:38 03/08/24 03:49 Range/Units Whole Blood Glucose 129 H 70-110 MG/DL Troponin I High Sensitivity 1655 *H 4-50 ng/L Bedside Glucose Comment Notified Nurse Sodium Level 143 136-145 mmol/L Potassium Level 4.1 3.5-5.1 mmol/L Chloride Level 105 101-111 mmol/L Carbon Dioxide Level 33 H 21-32 mmol/L Blood Urea Nitrogen 15 7-18 mg/dL Creatinine 0.8 0.5-1.0 mg/dL Glomerular Filtration Rate Calc 74 >90 mL/min Random Glucose 121 H 70-105 mg/dL Total Calcium 9.3 8.5-10.1 mg/dL Phosphorus Level 3.8 2.5-4.9 mg/dL Magnesium Level 2.10 1.80-2.40 mg/dL Thyroid Stimulating Hormone (TSH) 1.58 0.36-3.74 uIU/mL Test 03/07/24 18:19 Range/Units Total Creatine Kinase 52 # 21-232 U/L B-Type Natriuretic Peptide 58 0-100 pg/mL Coagulation Labs: Test 03/09/24 06:40 03/08/24 09:43 Range/Units Activated Partial Thromboplast Time 60.5 H 26.3-35.5 SEC Prothrombin Time 11.9 H 9.6-11.6 SEC Prothromb Time International Ratio 1.11 0.85-1.15 Impression and Plan: ACS-NSTEMI Hypertensive emergency CAD s/p PCI with MOY placement (Promus 2.5x24 mm) done on 01/10/2014 HTN HLP Chronically occluded LICA PAD Dr. Bassett and I met with the patient this morning. We discussed that the patient will undergo a left heart catheterization and possible stenting. We discussed the risks and benefits of the procedure. She will be kept NPO for left heart catheterization this afternoon. NEMO AN Mar 09, 2024 08:59
[2024-03-09] MEDS: cloPIDOgrel 75MG TAB PO SCH (09:32)
[2024-03-09] MEDS: metOPROLol sucCINATE 50 MG TAB.SR.24H PO SCH (09:33)
[2024-03-09] MEDS: doCUSate SODIUM 100 MG CAP PO PRN (09:33)
[2024-03-09] MEDS: hydrALAZine 20MG/ML VIAL IV PRN (09:34)
--- NOTE | 2024-03-09 09:38 | NUR ---
DCP: HOME Pt lives independently at home with her [address] [id number]. Pt states prior to admission, she was independent of all her ADLS, uses no in home care services or DME at this time. Pt states she is active and drives self. PCP is [facility] and uses [facility] on [address] for rx. Denies dc needs and will return home at dc Addendum: 03/09/24 at 0941 by GIFTY LISA Amended: Links added.
--- NOTE | 2024-03-09 15:54 | PN ---
[facility] PROGRESS NOTE Date Patient Seen: Mar 09, 2024 Time of Visit: 1139 Supervising Physician: Dr. Branch Primary Care Physician: PETRA HICKS MD (PCP) Outpatient Specialists: Dr. Carlo Bassett. Inpatient Consults: [facility] PROBLEM LIST: ACS-NSTEMI, POA Hypertension emergency, POA Atrial fibrillation, POA Coronary artery disease s/p CABG Hypercholesteremia CAD s/p PCI with MOY placement 01/21/2014 INTERVAL HISTORY: 03/08 patient was seen and examined by bedside with family present. Patient is awake alert able to answer simple questions appropriately. At time of visit patient is on room air appears to be tolerating well. Patient denies any reoccurrence chest pain, denies any shortness of breadth. Patient is troponin level noted to be trending down peaked at 5138 and now trended down to 3362. Patient to continue on heparin drip. As per Cardiology plan is for a left heart catheterization with possible intervention scheduled tomorrow 01/08/2024. Appreciate cardiology's assistance we will follow recommendations. Patient was seen and examined at bedside no family present. At time of visit patient denies any reoccurrence chest pain denies shortness of breadth. Denies nausea vomiting abdominal pain. Patient is scheduled for left heart adrienne terization with possible intervention today. We will follow up with results and continue to follow recommendations from Cardiology. Patient to continue on dual antiplatelet therapy beta-citlaly statin and Arb, and heparin drip per cardiology's recommendations. As per primary nurse no acute events to be reported REVIEW OF SYSTEMS: 12 point ROS reviewed with patient. Pertinent positives mentioned above. Otherwise negative. PHYSICAL EXAM: GENERAL: alert, weak, awake oriented x 3 HEENT: EOMI, Sclera non icteric, moist mucosa NECK: Supple, no JVD, trachea midline LUNGS: Clear breath sounds bilaterally. No wheezes HEART: Regular rate and rhythm. Normal S1 and S2, without murmurs ABD: Abdomen soft, nontender. Bowel sounds present EXT: No clubbing cyanosis or edema NEURO: Alert and oriented x3, follows commands Vital Signs (last 8hr) Date Time Temp Pulse Resp B/P (MAP) Pulse Ox O2 Delivery O2 Flow Rate FiO2 03/09/24 12:12 97.5 97 16 158/75 97 Room Air 03/09/24 10:15 160/69 03/09/24 09:17 98.2 99 18 199/90 95 Room Air 03/09/24 08:05 97.9 74 16 161/73 95 Room Air LABS: Hematology Labs: Test 03/08/24 03:49 03/07/24 18:19 Range/Units White Blood Count 8.0 4.8-10.8 K/uL Red Blood Count 4.33 4.00-5.50 MIL/uL Hemoglobin 12.9 12.0-16.0 g/dL Hematocrit 38.6 36-48 % Mean Corpuscular Volume 89.1 79-99 fL Mean Corpuscular Hemoglobin 29.8 27.0-33.0 pg Mean Corpuscular Hemoglobin Concent 33.4 32.0-36.0 g/dL Red Cell Distribution Width 12.6 11.0-15.5 % Platelet Count 226 130-400 K/uL Mean Platelet Volume 11.6 H 7.5-10.5 fL Nucleated Red Blood Cells 0.0 0.0-0.19 % Immature Granulocyte % (Auto) 0.4 0-1 % Neutrophils (%) (Auto) 60.1 40.0-77.0 % Lymphocytes (%) (Auto) 26.6 21.0-51.0 % Monocytes (%) (Auto) 9.9 3.0-13.0 % Eosinophils (%) (Auto) 2.2 0.0-8.0 % Basophils (%) (Auto) 0.8 0.0-5.0 % Neutrophils # (Auto) 4.4 1.8-7.7 K/uL Lymphocytes # (Auto) 2.0 1.0-4.8 K/uL Monocytes # (Auto) 0.7 0.1-1.0 K/uL Eosinophils # (Auto) 0.16 0.00-0.70 K/uL Basophils # (Auto) 0.06 0.00-0.20 K/uL Absolute Immature Granulocyte (auto 0.03 0-1 K/uL Chemistry Labs: Test 03/09/24 11:30 03/09/24 03:55 03/08/24 16:38 03/08/24 03:49 Range/Units Whole Blood Glucose 149 H 70-110 MG/DL Troponin I High Sensitivity 1655 *H 4-50 ng/L Bedside Glucose Comment Notified Nurse Sodium Level 143 136-145 mmol/L Potassium Level 4.1 3.5-5.1 mmol/L Chloride Level 105 101-111 mmol/L Carbon Dioxide Level 33 H 21-32 mmol/L Blood Urea Nitrogen 15 7-18 mg/dL Creatinine 0.8 0.5-1.0 mg/dL Glomerular Filtration Rate Calc 74 >90 mL/min Random Glucose 121 H 70-105 mg/dL Total Calcium 9.3 8.5-10.1 mg/dL Phosphorus Level 3.8 2.5-4.9 mg/dL Magnesium Level 2.10 1.80-2.40 mg/dL Thyroid Stimulating Hormone (TSH) 1.58 0.36-3.74 uIU/mL Test 03/07/24 18:19 Range/Units Total Creatine Kinase 52 # 21-232 U/L B-Type Natriuretic Peptide 58 0-100 pg/mL Coagulation Labs: Test 03/09/24 06:40 03/08/24 09:43 Range/Units Activated Partial Thromboplast Time 60.5 H 26.3-35.5 SEC Prothrombin Time 11.9 H 9.6-11.6 SEC Prothromb Time International Ratio 1.11 0.85-1.15 DIAGNOSTICS / RADIOLOGY RESULTS: na PLAN Continue tele monitoring Continue heparin IV drip per protocol. Nitroglycerin 1 inch to chest wall q.8 hours. Continue [id number] mg daily Continue [id number] mg daily Atorvastatin 40 mg p.o. daily. As per cardiology's scheduled for left heart catheterization possible intervention, continue losartan 100 mg daily metoprolol succinate mg daily P.r.n. medications for pain management, fever, nausea, vomiting, constipation, hypertension. Oxygen supplementations as needed to maintain oxygen levels equal to or greater than 92%. Blood pressure checks every4 hours and as needed. Continue to follow recommendations from Cardiology NEURO: Minimize central acting medications as possible. Maintain fall precautions, adequate lighting during the day PULMONARY: Supplemental 02 as needed. Maintain aspiration precautions at all times CARDIOVASCULAR: Follow hemodynamics. Vital signs per facility protocol GI & NUTRITION: Continue with nutritional support. Continue stool softeners and laxatives as needed. KIDNEYS & ELECTROLYTES: Strict monitoring of intake, output and overall fluid balance. Avoid nephrotoxic medications to the extent possible. Medications to be dosed according to renal function. Monitor electrolytes and replace as needed ENDOCRINE: Maintain blood glucose between 100-180 at all times. Hypoglycemia protocol in place INFECTIOUS DISEASE: Trend temperature, WBC and procalcitonin level Follow cultures, deescalate antibiotics as soon as possible. Panculture if new onset fever ONCOLOGY/HEMATOLOGY/COAGULATION: Monitor for s/s of bleeding Monitor hemoglobin, coagulation studies as needed SKIN: Pressure ulcer prevention per facility protocol Specialty mattress ORTHO/REHAB: Continue PT/OT Prophylaxis: Continue GI and DVT prophylaxis Code Status: Full Resuscitation Disposition: TBD Total time spent caring for patient 35 minutes Case discussed with supervising physician plan of care agreed upon MACKENZIE SIMON Mar 09, 2024 15:54
[2024-03-09] MEDS ORDERED: LIDOCAINE HCL 400MG/20ML VIAL ONE (16:31)
[2024-03-09] MEDS ORDERED: IOHEXOL 350 MG/ML 100ML INFUS..BTL IV ONE ×2 (16:32→17:28)
[2024-03-09] MEDS ORDERED: HEParin-NS 1,000 UNIT/500 ML 1,000 ML IV ONE (16:32)
[2024-03-09] MEDS ORDERED: MIDAZOLAM HCL 1 MG/ML 2ML VIAL ONE ×2 (16:32→17:13)
[2024-03-09] MEDS ORDERED: HEParin 10,000 UNIT/10ML (1,000 UNIT/ML) VIAL ONE (16:32)
[2024-03-09] MEDS ORDERED: FENTanyl CITRate PF 50 MCG/1 ML 2ML VIAL ONE (16:32)
[2024-03-09] MEDS ORDERED: NITROGLYCERIN 50MG VIAL ONE (16:32)
[2024-03-09] MEDS ORDERED: BIVALIRUDIN 250 MG/VIAL IV ONE (16:49)
[2024-03-09] MEDS ORDERED: HEParin-NS 1,000 UNIT/500 ML 500 ML IV ONE (17:16)
[2024-03-09] MEDS ORDERED: ATROPINE 1MG SYG IVP ONE (17:18)
[2024-03-09] MEDS ORDERED: cloPIDOgrel 300MG TAB ONE (17:59)
[2024-03-09] MEDS ORDERED: ASPIRIN 325MG EC TAB PO ONE (17:59)
[2024-03-09] MEDS ORDERED: LAbetaLOL 20MG SYG IV ONE (18:03)
--- NOTE | 2024-03-09 18:09 | PRN ---
PROCEDURES: 1. Right common femoral arterial sheath placement. 2. Selective coronary angiogram. 3. Left heart catheterization. 4. Angioplasty and stent placement to mid distal RCA with overlapping 2.5 mm x 38 mm paulo stent deployed to 2.65 mm and a 2.75 mm x 38 mm paulo stent deployed to 2.75 mm in an overlapping fashion to the mid RCA 5. Primary stent placement to distal RCA into RPDA with the use of a 2.25 mm x 15 mm paulo stent deployed to 2.25 mm initially with the overlapping segment with distal 2.5 mm RCA stent deployed to 2.45 mm [] INDICATION: Non-STEMI DESCRIPTION OF PROCEDURE: The patient was brought to the catheterization suite and prepped and draped in sterile fashion. IV was started, and not already in place and both groins were exposed for arterial access. 1% lidocaine was used for local anesthesia and then a micropuncture kit was used to gain access once free-flowing blood was seen, modified Seldinger technique was utilized to place a 6 [place] sheath into the right common femoral artery. Next, preformed JL4 and JR 4 catheters were used to selectively engage the [place] coronary vessels and multiple hand contrast injections were performed in different views to define the coronary anatomy. The JR4 catheter as other catheters were used to cross the aortic valve pressure measurements were obtained and pullback method was performed. A left ventriculogram was not done secondary to preservation of contrast. FINDINGS: The left main artery bifurcates into the LAD and left circumflex in his free of any significant disease. The left anterior descending artery in its proximal segment and within the mid LAD stent has stenosis of 70% with 70% in stent restenosis noted as well. The apical LAD has a 50-60% stenosis. The left circumflex artery after small obtuse marginal branch 1. As a 70% stenosis followed by a 75-80% stenosis in the mid distal left circumflex. There is obtuse marginal branch 2. Which was a small vessel has a 95% stenosis present The RCA is a dominant system which has a stenosis in its mid segment of 75% and its distal segment of 95%. There was no evidence of aortic stenosis. LVEDP is severely elevated at 28 mm Hg. INTERVENTIONAL REPORT: After diagnostic angiography was performed in start intervention should be done to the infarct-related vessel which was thought to be the RCA. We initially went in with a JR4 guide catheter with side holes but were unable to intubate the artery then we went in with an AR one, AL1 AR two and finally were able to gain access with an AR T4. Next a choice PT extra-support 0.014 in wire was then placed in the distal ongoing PDA and or fluoroscopic guidance. Next a 2.5 mm x 15 mm balloon was then used to dilate distal RCA to nominal pressure and the mid RCA a nominal pressure. Next a 2.5 mm x 38 mm paulo stent was then placed in the distal RCA and deployed to 2.65 mm. Next a 2.75 mm x 38 mm paulo Hurley stent was then placed in an overlapping fashion and deployed to 2.75 mm. Follow up contrast injection with what appeared to be dissection in the distal RCA which had not been covered and it was felt stent placement should be done therefore a 2.25 mm x 15 mm paulo Hurley stent was then placed into the distal RCA extending into the right PDA and deployed. This was deployed to 2.25 mm then brought back in the overlapping segment with the previously placed stent it was deployed to 2.45 mm. At end of case a sheath was sewn into place. RECOMMENDATIONS: Dual antiplatelet therapy over the weekend Schedule patient to proceed with planned intervention to circumflex with possibly doing the LAD as an outpatient. ROBE MAHAN MD Mar 09, 2024 18:09
[2024-03-09] MEDS: 0.9%NACL 1000ML 1,000 ML IV SCH (21:32)
[2024-03-09] MEDS: NACL NASAL SPRAY 120 SPRAY/BOTTLE NS ONE (23:50)
[2024-03-10] VITALS (8 sets, daily range): BP systolic 117–136; BP diastolic 52–65; PULSE 78–92; RESP 18–20; TEMP 98–99; O2SAT 95–96
[2024-03-10 03:57] LABS: HEMATOCRIT 38.1 % (36-48); MEAN CORPUSCULAR HEMOGLOBIN 29.3 pg (27.0-33.0); MEAN CORPUSCULAR HGB CONC 33.1 g/dL (32.0-36.0); MEAN CORPUSCULAR VOLUME 88.6 fL (79-99); RED BLOOD CELL COUNT(AUTO) 4.3 MIL/uL (4.00-5.50); RED CELL DISTRIBUTION WIDTH 13.2 % (11.0-15.5); WHITE BLOOD COUNT (AUTO) 13.1 K/uL (4.8-10.8)
[2024-03-10 04:06] LABS: CREATININE 0.9 mg/dL (0.5-1.0); POTASSIUM 3.8 mmol/L (3.5-5.1)
[2024-03-10] MEDS: cloPIDOgrel 75MG TAB PO SCH (09:00)
[2024-03-10] MEDS: ASPIRIN 81MG CHEW TAB PO SCH (09:00)
[2024-03-10] MEDS: ISOSORBIDE MONO 30MG SR TAB PO SCH (09:09)
--- NOTE | 2024-03-10 14:36 | PN ---
[facility] PROGRESS NOTE Date Patient Seen: Mar 10, 2024 Time of Visit: 1046 Supervising Physician: Dr. Branch Primary Care Physician: PETRA HICKS MD (PCP) Outpatient Specialists: Dr. Carlo Bassett. Inpatient Consults: [facility] PROBLEM LIST: ACS-NSTEMI, POA s/p left heart catheterization 03/09/2024 Hypertension emergency, POA Atrial fibrillation, POA Coronary artery disease s/p CABG Hypercholesteremia CAD s/p PCI with MOY placement 01/21/2014 INTERVAL HISTORY: 03/08 patient was seen and examined by bedside with family present. Patient is awake alert able to answer simple questions appropriately. At time of visit patient is on room air appears to be tolerating well. Patient denies any reoccurrence chest pain, denies any shortness of breadth. Patient is troponin level noted to be trending down peaked at 5138 and now trended down to 3362. Patient to continue on heparin drip. As per Cardiology plan is for a left heart catheterization with possible intervention scheduled tomorrow 01/08/2024. Ap preciate cardiology's assistance we will follow recommendations. 03/09 Patient was seen and examined at bedside no family present. At time of visit patient denies any reoccurrence chest pain denies shortness of breadth. Denies nausea vomiting abdominal pain. Patient is scheduled for left heart catheterization with possible intervention today. We will follow up with results and continue to follow recommendations from Cardiology. Patient to continue on dual antiplatelet therapy beta-citlaly statin and Arb, and heparin drip per cardiology's recommendations. As per primary nurse no acute events to be reported 03/10 patient was seen and examined at bedside no family present. Patient had left heart catheterization done yesterday. Recommendations from Cardiology continue dual antiplatelet therapy with a weekend schedule patient to proceed with planned intervention to the circumflex with possible doing the LAD as an outpatient. At time of visit patient denies chest pain or shortness of breadth. Denies nausea vomiting or abdominal pain. As per primary nurse no acute events to be reported. We will continue to monitor closely REVIEW OF SYSTEMS: 12 point ROS reviewed with patient. Pertinent positives mentioned above. Otherwise negative. PHYSICAL EXAM: GENERAL: alert, weak, awake oriented x 3 HEENT: EOMI, Sclera non icteric, moist mucosa NECK: Supple, no JVD, trachea midline LUNGS: Clear breath sounds bilaterally. No wheezes HEART: Regular rate and rhythm. Normal S1 and S2, without murmurs ABD: Abdomen soft, nontender. Bowel sounds present EXT: No clubbing cyanosis or edema NEURO: Alert and oriented x3, follows commands Vital Signs (last 8hr) Date Time Temp Pulse Resp B/P (MAP) Pulse Ox O2 Delivery O2 Flow Rate FiO2 03/10/24 11:47 98.1 86 18 117/59 96 03/10/24 07:43 98.4 92 20 134/61 97 Room Air 03/10/24 07:00 96 Room Air* 0 21 LABS: Hematology Labs: Test 03/10/24 03:29 Range/Units White Blood Count 13.1 H 4.8-10.8 K/uL Red Blood Count 4.30 4.00-5.50 MIL/uL Hemoglobin 12.6 12.0-16.0 g/dL Hematocrit 38.1 36-48 % Mean Corpuscular Volume 88.6 79-99 fL Mean Corpuscular Hemoglobin 29.3 27.0-33.0 pg Mean Corpuscular Hemoglobin Concent 33.1 32.0-36.0 g/dL Red Cell Distribution Width 13.2 11.0-15.5 % Platelet Count 176 130-400 K/uL Mean Platelet Volume 11.8 H 7.5-10.5 fL Nucleated Red Blood Cells 0.0 0.0-0.19 % Chemistry Labs: Test 03/10/24 11:26 03/10/24 03:29 03/09/24 03:55 03/08/24 16:38 Range/Units Whole Blood Glucose 201 H 70-110 MG/DL Sodium Level 142 136-145 mmol/L Potassium Level 3.8 3.5-5.1 mmol/L Chloride Level 107 101-111 mmol/L Carbon Dioxide Level 27 21-32 mmol/L Blood Urea Nitrogen 18 7-18 mg/dL Creatinine 0.9 0.5-1.0 mg/dL Glomerular Filtration Rate Calc 64 >90 mL/min Random Glucose 170 H 70-105 mg/dL Total Calcium 9.4 8.5-10.1 mg/dL Magnesium Level 2.00 1.80-2.40 mg/dL Troponin I High Sensitivity 1655 *H 4-50 ng/L Bedside Glucose Comment Notified Nurse Coagulation Labs: Test 03/09/24 06:40 Range/Units Activated Partial Thromboplast Time 60.5 H 26.3-35.5 SEC DIAGNOSTICS / RADIOLOGY RESULTS: na PLAN Continue tele monitoring Discontinue heparin drip Nitroglycerin 1 inch to chest wall q.8 hours. Continue [id number] mg daily Continue [id number] mg daily Atorvastatin 40 mg p.o. daily. As per cardiology continue dual antiplatelet therapy over the weekend schedule patient to proceed with planned intervention to circumflex with possibility doing the LAD as an outpatient P.r.n. medications for pain management, fever, nausea, vomiting, constipation, hypertension. Oxygen supplementations as needed to maintain oxygen levels equal to or greater than 92%. Blood pressure checks every4 hours and as needed. Continue to follow recommendations from Cardiology NEURO: Minimize central acting medications as possible. Maintain fall precautions, adequate lighting during the day PULMONARY: Supplemental 02 as needed. Maintain aspiration precautions at all times CARDIOVASCULAR: Follow hemodynamics. Vital signs per facility protocol GI & NUTRITION: Continue with nutritional support. Continue stool softeners and laxatives as needed. KIDNEYS & ELECTROLYTES: Strict monitoring of intake, output and overall fluid balance. Avoid nephrotoxic medications to the extent possible. Medications to be dosed according to renal function. Monitor electrolytes and replace as needed ENDOCRINE: Maintain blood glucose between 100-180 at all times. Hypoglycemia protocol in place INFECTIOUS DISEASE: Trend temperature, WBC and procalcitonin level Follow cultures, deescalate antibiotics as soon as possible. Panculture if new onset fever ONCOLOGY/HEMATOLOGY/COAGULATION: Monitor for s/s of bleeding Monitor hemoglobin, coagulation studies as needed SKIN: Pressure ulcer prevention per facility protocol Specialty mattress ORTHO/REHAB: Continue PT/OT Prophylaxis: Continue GI and DVT prophylaxis Code Status: Full Resuscitation Disposition: TBD Case discussed with supervising physician plan of care agreed upon MACKENZIE SIMON [facility] Mar 10, 2024 14:36
--- NOTE | 2024-03-10 15:54 | PN ---
This is an 83-year-old female with a history of coronary artery disease status post PCI to the LAD 01/10/2014, an occluded left internal carotid artery, peripheral arterial disease, hypertension and hyperlipidemia. She was admitted 03/07/2024 secondary to a non-STEMI with hypertensive emergency. She underwent left heart catheterization 03/09/2024 with the angioplasty and stent placement to the mid to distal RCA in an overlapping fashion and primary stenting to the distal RCA into the RPDA due to 7% mid RCA stenosis and 95% distal RCA stenosis. She had residual 70% stenosis to the mid LAD with 70% InStent restenosis, 50- 60% stenosis to the apical LAD, 70 % stenosis followed by 75-80% stenosis in the mid to distal left circumflex and obtuse marginal branch 2 which was a small vessel with 95% stenosis. Echocardiogram 03/08/2024 demonstrates an ejection fraction of 55-60% with grade 1 diastolic dysfunction, moderate LVH, trace aortic valve regurgitation and trace mitral valve regurgitation. She is currently in sinus rhythm with heart rates in the 80s. She denies chest pain, shortness or breath, palpitations or weakness. On exam, she is in no acute distress regular rate and rhythm, lungs are clear to auscultation bilaterally, no lower extremity edema is noted. Assessment: 1. Non-STEMI status post intervention to the mid to distal RCA. 2. Residual coronary artery disease involving the LAD left circumflex and obtuse marginal branch 2. 3. Preserved LV function. 4. Hypertension. 5. Hyperlipidemia. 6. Peripheral arterial disease. Plan: 1. Continue aspirin 81 mg once daily, atorvastatin 40 mg once daily, clopidogrel 75 mg once daily, isosorbide mononitrate 60 mg once daily, losartan 100 mg once daily and metoprolol succinate 50 mg once daily. 2. There is a plan intervention to the circumflex 03/12/2024 with possible LAD intervention as an outpatient. Vitals/Labs Vital Signs Date Time Temp Pulse Resp B/P (MAP) Pulse Ox O2 Delivery O2 Flow Rate FiO2 03/10/24 11:47 98.1 86 18 117/59 96 03/10/24 07:43 Room Air 03/10/24 07:00 0 21 Laboratory Tests 03/10/24 03:29 LIO JACKSON Mar 10, 2024 15:54
[2024-03-11] VITALS (8 sets, daily range): BP systolic 115–132; BP diastolic 50–72; PULSE 77–88; RESP 16–20; TEMP 98.1–98.7; O2SAT 96
--- NOTE | 2024-03-11 12:40 | PN ---
[facility] PROGRESS NOTE Date Patient Seen: Mar 11, 2024 Time of Visit: 1100 Supervising Physician: Dr. VALADEZ Primary Care Physician: PETRA HICKS MD (PCP) Outpatient Specialists: Dr. Carlo Bassett. Inpatient Consults: [facility] PROBLEM LIST: ACS-NSTEMI, POA s/p left heart catheterization 03/09/2024 Hypertension emergency, POA Atrial fibrillation, POA Coronary artery disease s/p CABG Hypercholesteremia CAD s/p PCI with MOY placement 01/21/2014 INTERVAL HISTORY: 03/08 patient was seen and examined by bedside with family present. Patient is awake alert able to answer simple questions appropriately. At time of visit patient is on room air appears to be tolerating well. Patient denies any reoccurrence chest pain, denies any shortness of breadth. Patient is troponin level noted to be trending down peaked at 5138 and now trended down to 3362. Patient to continue on heparin drip. As per Cardiology plan is for a left heart catheterization with possible intervention scheduled tomorrow 01/08/2024. Ap preciate cardiology's assistance we will follow recommendations. 03/09 Patient was seen and examined at bedside no family present. At time of visit patient denies any reoccurrence chest pain denies shortness of breadth. Denies nausea vomiting abdominal pain. Patient is scheduled for left heart catheterization with possible intervention today. We will follow up with results and continue to follow recommendations from Cardiology. Patient to continue on dual antiplatelet therapy beta-citlaly statin and Arb, and heparin drip per cardiology's recommendations. As per primary nurse no acute events to be reported 03/10 patient was seen and examined at bedside no family present. Patient had left heart catheterization done yesterday. Recommendations from Cardiology continue dual antiplatelet therapy with a weekend schedule patient to proceed with planned intervention to the circumflex with possible doing the LAD as an outpatient. At time of visit patient denies chest pain or shortness of breadth. Denies nausea vomiting or abdominal pain. As per primary nurse no acute events to be reported. We will continue to monitor closely 03/11 patient was seen and examined at bedside no family present. Patient is scheduled for plan intervention to the circumflex on 03/12/2024 with possible LAD intervention as an outpatient. Patient's at time of visit has no specific complaints. Patient has remained hemodynamically stable. Patient to continue on dual antiplatelet therapy. We will continue to follow recommendations from Cardiology. As per primary nurse no acute events to be reported REVIEW OF SYSTEMS: 12 point ROS reviewed with patient. Pertinent positives mentioned above. Otherwise negative. PHYSICAL EXAM: GENERAL: alert, weak, awake oriented x 3 HEENT: EOMI, Sclera non icteric, moist mucosa NECK: Supple, no JVD, trachea midline LUNGS: Clear breath sounds bilaterally. No wheezes HEART: Regular rate and rhythm. Normal S1 and S2, without murmurs ABD: Abdomen soft, nontender. Bowel sounds present EXT: No clubbing cyanosis or edema NEURO: Alert and oriented x3, follows commands Vital Signs (last 8hr) Date Time Temp Pulse Resp B/P (MAP) Pulse Ox O2 Delivery O2 Flow Rate FiO2 03/11/24 11:38 98.6 85 18 121/72 96 Room Air 03/11/24 07:29 98.4 88 18 132/52 96 Room Air LABS: Hematology Labs: Test 03/10/24 03:29 Range/Units White Blood Count 13.1 H 4.8-10.8 K/uL Red Blood Count 4.30 4.00-5.50 MIL/uL Hemoglobin 12.6 12.0-16.0 g/dL Hematocrit 38.1 36-48 % Mean Corpuscular Volume 88.6 79-99 fL Mean Corpuscular Hemoglobin 29.3 27.0-33.0 pg Mean Corpuscular Hemoglobin Concent 33.1 32.0-36.0 g/dL Red Cell Distribution Width 13.2 11.0-15.5 % Platelet Count 176 130-400 K/uL Mean Platelet Volume 11.8 H 7.5-10.5 fL Nucleated Red Blood Cells 0.0 0.0-0.19 % Chemistry Labs: Test 03/11/24 11:01 03/10/24 03:29 Range/Units Whole Blood Glucose 198 #H 70-110 MG/DL Sodium Level 142 136-145 mmol/L Potassium Level 3.8 3.5-5.1 mmol/L Chloride Level 107 101-111 mmol/L Carbon Dioxide Level 27 21-32 mmol/L Blood Urea Nitrogen 18 7-18 mg/dL Creatinine 0.9 0.5-1.0 mg/dL Glomerular Filtration Rate Calc 64 >90 mL/min Random Glucose 170 H 70-105 mg/dL Total Calcium 9.4 8.5-10.1 mg/dL Magnesium Level 2.00 1.80-2.40 mg/dL DIAGNOSTICS / RADIOLOGY RESULTS: na PLAN Continue tele monitoring Discontinue heparin drip Nitroglycerin 1 inch to chest wall q.8 hours. Continue [id number] mg daily Continue [id number] mg daily Atorvastatin 40 mg p.o. daily. As per cardiology continue dual antiplatelet therapy over the weekend schedule patient to proceed with planned intervention to circumflex on 03/12/24 with possibility doing the LAD as an outpatient P.r.n. medications for pain management, fever, nausea, vomiting, constipation, hypertension. Oxygen supplementations as needed to maintain oxygen levels equal to or greater than 92%. Blood pressure checks every4 hours and as needed. Continue to follow recommendations from Cardiology NEURO: Minimize central acting medications as possible. Maintain fall precautions, adequate lighting during the day PULMONARY: Supplemental 02 as needed. Maintain aspiration precautions at all times CARDIOVASCULAR: Follow hemodynamics. Vital signs per facility protocol GI & NUTRITION: Continue with nutritional support. Continue stool softeners and laxatives as needed. KIDNEYS & ELECTROLYTES: Strict monitoring of intake, output and overall fluid balance. Avoid nephrotoxic medications to the extent possible. Medications to be dosed according to renal function. Monitor electrolytes and replace as needed ENDOCRINE: Maintain blood glucose between 100-180 at all times. Hypoglycemia protocol in place INFECTIOUS DISEASE: Trend temperature, WBC and procalcitonin level Follow cultures, deescalate antibiotics as soon as possible. Panculture if new onset fever ONCOLOGY/HEMATOLOGY/COAGULATION: Monitor for s/s of bleeding Monitor hemoglobin, coagulation studies as needed SKIN: Pressure ulcer prevention per facility protocol Specialty mattress ORTHO/REHAB: Continue PT/OT Prophylaxis: Continue GI and DVT prophylaxis Code Status: Full Resuscitation Disposition: TBD Case discussed with supervising physician plan of care agreed upon MACKENZIE SIMON Mar 11, 2024 12:40
--- NOTE | 2024-03-11 13:53 | PN ---
This is an 83-year-old female with a history of coronary artery disease status post PCI to the LAD 01/10/2014, an occluded left internal carotid artery, peripheral arterial disease, hypertension and hyperlipidemia. She was admitted 03/07/2024 secondary to a non-STEMI with hypertensive emergency. She underwent left heart catheterization 03/09/2024 with the angioplasty and stent placement to the mid to distal RCA in an overlapping fashion and primary stenting to the distal RCA into the RPDA due to 75% mid RCA stenosis and 95% distal RCA stenosis. She had residual 70% stenosis to the mid LAD with 70% InStent restenosis, 50-60% stenosis to the apical LAD, 70 % stenosis followed by 75-80% stenosis in the mid to distal left circumflex and obtuse marginal branch 2 which was a small vessel with 95% stenosis. Echocardiogram 03/08/2024 demonstrates an ejection fraction of 55-60% with grade 1 diastolic dysfunction, moderate LVH, trace aortic valve regurgitation and trace mitral valve regurgitation. She is currently in sinus rhythm with heart rates in the 70s. She denies chest pain, shortness or breath, palpitations or weakness. On exam, she is in no acute distress regular rate and rhythm, lungs are clear to auscultation bilaterally, no lower extremity edema is noted. Assessment: 1. Non-STEMI status post intervention to the mid to distal RCA. 2. Residual coronary artery disease involving the LAD, left circumflex and obtuse marginal branch 2. 3. Preserved LV function. 4. Hypertension. 5. Hyperlipidemia. 6. Peripheral arterial disease. Plan: 1. She presented with a non-STEMI status post intervention to the mid to distal RCA is documented above. Continue dual antiplatelet therapy with aspirin 81 mg once daily and clopidogrel 75 mg once daily. Also continue atorvastatin 40 mg once daily, isosorbide mononitrate 60 mg once daily, losartan 100 mg once daily and metoprolol succinate 50 mg once daily. 2. Make NPO after midnight for intervention to left circumflex 03/12/2024. P ossible LAD intervention as an outpatient. Vitals/Labs Vital Signs Date Time Temp Pulse Resp B/P (MAP) Pulse Ox O2 Delivery O2 Flow Rate FiO2 03/11/24 11:38 98.6 85 18 121/72 96 Room Air 03/10/24 20:40 0 21 LIO JACKSON Mar 11, 2024 13:53
[2024-03-12] VITALS (13 sets, daily range): BP systolic 103–162; BP diastolic 50–75; PULSE 77–93; RESP 16–18; TEMP 97.9–98.5; O2SAT 96
[2024-03-12 04:26] LABS: MEAN CORPUSCULAR HEMOGLOBIN 28.8 pg (27.0-33.0); MEAN CORPUSCULAR HGB CONC 32.1 g/dL (32.0-36.0); MEAN CORPUSCULAR VOLUME 89.8 fL (79-99); RED BLOOD CELL COUNT(AUTO) 3.23 MIL/uL (4.00-5.50); RED CELL DISTRIBUTION WIDTH 13.2 % (11.0-15.5)
[2024-03-12 04:44] LABS: INR 1.01 (0.85-1.15); PROTHROMBIN TIME 10.9 SEC (9.6-11.6)
[2024-03-12 04:46] LABS: CREATININE 0.8 mg/dL (0.5-1.0); PARTIAL THROMBOPLASTIN TIME 27.8 SEC (26.3-35.5); POTASSIUM 3.7 mmol/L (3.5-5.1)
--- NOTE | 2024-03-12 08:13 | PN ---
PROGRESS NOTE PROBLEM LIST: ACS-NSTEMI Hypertensive emergency CAD s/p PCI with MOY placement (Promus 2.5x24 mm) done on 01/10/2014 HTN HLP Chronically occluded LICA PAD Coronary angiogram revealing significant stenosis involving RCA circumflex and LAD status post extensive RCA intervention to the mid and distal RCA extending into the PDA please see separate report INTERIM HISTORY OF PRESENT ILLNESS: Over the weekend patient had no significant issues and/or problems. She did have successful intervention done to her RCA into her PDA on Tuesday afternoon. Patient no longer is on a heparin drip. Patient did have a 2D echocardiogram revealing preserved left ventricular function at 55-60%. Patient is scheduled for percutaneous coronary intervention to left circumflex system and probable LAD depending on contrast load today. Renal function has been reviewed and has been normal. REVIEW OF SYSTEMS: No fever, headache, chest pain, abdominal pain, nausea, vomiting, or diarrhea. VITAL SIGNS Vital Signs Date Time Temp Pulse Resp B/P (MAP) Pulse Ox O2 Delivery O2 Flow Rate FiO2 03/12/24 03:25 98.2 79 16 124/57 96 Room Air 03/11/24 19:52 0 21 Laboratory Tests 03/12/24 03:54 LABS/MEDS Laboratory Tests Test 03/11/24 11:01 03/11/24 16:02 03/11/24 20:13 03/12/24 03:54 Whole Blood Glucose 198 MG/DL (70-110) #H 124 MG/DL (70-110) H 172 MG/DL (70-110) H Bedside Glucose Comment Notified Nurse White Blood Count 8.0 K/uL (4.8-10.8) Red Blood Count 3.23 MIL/uL (4.00-5.50) L Hemoglobin 9.3 g/dL (12.0-16.0) #L Hematocrit 29.0 % (36-48) #L Mean Corpuscular Volume 89.8 fL (79-99) Mean Corpuscular Hemoglobin 28.8 pg (27.0-33.0) Mean Corpuscular Hemoglobin Concent 32.1 g/dL (32.0-36.0) Red Cell Distribution Width 13.2 % (11.0-15.5) Platelet Count 192 K/uL (130-400) Mean Platelet Volume 11.4 fL (7.5-10.5) H Nucleated Red Blood Cells 0.0 % (0.0-0.19) Prothrombin Time 10.9 SEC (9.6-11.6) Prothromb Time International Ratio 1.01 (0.85-1.15) Activated Partial Thromboplast Time 27.8 SEC (26.3-35.5) Sodium Level 143 mmol/L (136-145) Potassium Level 3.7 mmol/L (3.5-5.1) Chloride Level 110 mmol/L (101-111) Carbon Dioxide Level 26 mmol/L (21-32) Blood Urea Nitrogen 23 mg/dL (7-18) H Creatinine 0.8 mg/dL (0.5-1.0) Glomerular Filtration Rate Calc 74 mL/min (>90) Random Glucose 118 mg/dL (70-105) H Total Calcium 8.7 mg/dL (8.5-10.1) Test 03/12/24 05:12 Whole Blood Glucose 131 MG/DL (70-110) H Current Medications Labetalol HCl 10 mg ONCE ONCE IV Last administered on 03/07/24at 18:21; Start 03/07/24 at 18:30; Stop 03/07/24 at 18:31; Status DC Heparin Sodium/ Dextrose 250 ml @ 0 mls/hr PROTOCOL IV; Start 03/07/24 at 20:30; Stop 03/08/24 at 03:23; Status DC Nitroglycerin 0.4 mg AD PRN SL Last administered on 03/09/24at 09:42; Start 03/07/24 at 21:00; Stop 04/06/24 at 20:59 Acetaminophen 650 mg Q6H PRN PO; Start 03/07/24 at 22:00; Stop 04/06/24 at 21:59 Acetaminophen 650 mg Q6H PRN RC; Start 03/07/24 at 22:00; Stop 04/06/24 at 21:59 Lactulose 20 gm Q6H PRN PO; Start 03/07/24 at 22:00; Stop 04/06/24 at 21:59 Docusate Sodium 100 mg BID PRN PO Last administered on 03/09/24at 09:33; Start 03/07/24 at 22:00; Stop 04/06/24 at 21:59 Temazepam 15 mg HS PRN PO; Start 03/07/24 at 22:00; Stop 04/06/24 at 21:59 Ondansetron HCl 4 mg Q6H PRN IVP; Start 03/07/24 at 22:00; Stop 04/06/24 at 21:59 Hydralazine HCl 10 mg Q2H PRN IV Last administered on 03/10/24at 00:05; Start 03/07/24 at 22:00; Stop 04/06/24 at 21:59 Insulin Human Regular INSULIN SLIDING SCAL... ACHS SQ Last administered on 03/11/24at 12:08; Start 03/08/24 at 07:30; Stop 04/07/24 at 07:29 Nitroglycerin 1 inch Q8H TD Last administered on 03/12/24at 05:18; Start 03/07/24 at 22:00; Stop 04/06/24 at 21:59 Aspirin 324 mg ONCE ONCE PO Last administered on 03/07/24at 23:40; Start 03/07/24 at 22:00; Stop 03/07/24 at 22:01; Status DC Atorvastatin Calcium 40 mg HS PO Last administered on 03/11/24at 20:48; Start 03/07/24 at 22:00; Stop 04/06/24 at 21:59 Aspirin 81 mg DAILY PO Last administered on 03/11/24at 09:01; Start 03/08/24 at 09:00; Stop 04/07/24 at 08:59 Heparin Sodium/ Dextrose 250 ml @ 0 mls/hr PROTOCOL IV Last administered on 03/09/24at 10:35; Start 03/08/24 at 05:00; Stop 04/07/24 at 04:59 Heparin Sodium (Porcine) 5,000 unit ONCE IV Last administered on 03/10/24at 05:16; Start 03/08/24 at 05:30; Stop 03/12/24 at 07:45; Status DC Metoprolol Tartrate 50 mg DAILY PO Last administered on 03/08/24at 09:40; Start 03/08/24 at 09:00; Stop 03/08/24 at 11:50; Status DC Losartan Potassium 100 mg DAILY17 PO Last administered on 03/11/24at 17:52; Start 03/08/24 at 17:00; Stop 04/07/24 at 16:59 Clopidogrel Bisulfate 300 mg ONCE ONCE PO Last administered on 03/08/24at 13:24; Start 03/08/24 at 12:00; Stop 03/08/24 at 12:01; Status DC Clopidogrel Bisulfate 75 mg DAILY PO Last administered on 03/11/24at 09:01; Start 03/09/24 at 09:00; Stop 03/12/24 at 07:45; Status DC Metoprolol Succinate 50 mg DAILY PO Last administered on 03/11/24at 09:01; Start 03/09/24 at 09:00; Stop 04/08/24 at 08:59 Lidocaine HCl 20 ml STK-MED ONCE .ROUTE; Start 03/09/24 at 16:31; Stop 03/09/24 at 16:32; Status DC Fentanyl Citrate 100 mcg STK-MED ONCE .ROUTE; Start 03/09/24 at 16:32; Stop 03/09/24 at 16:32; Status DC Midazolam HCl 2 mg STK-MED ONCE .ROUTE; Start 03/09/24 at 16:32; Stop 03/09/24 at 16:32; Status DC Iohexol 35,000 mg STK-MED ONCE IV; Start 03/09/24 at 16:32; Stop 03/09/24 at 16:32; Status DC Heparin Sodium (Porcine) 10,000 unit STK-MED ONCE .ROUTE; Start 03/09/24 at 16:32; Stop 03/09/24 at 16:32; Status DC Heparin Sodium/ Sodium Chloride 1,000 ml @ As Directed STK-MED ONCE IV; Start 03/09/24 at 16:32; Stop 03/09/24 at 16:32; Status DC Nitroglycerin 50 mg STK-MED ONCE .ROUTE; Start 03/09/24 at 16:32; Stop 03/09/24 at 16:32; Status DC Bivalirudin 250 mg STK-MED ONCE IV; Start 03/09/24 at 16:49; Stop 03/09/24 at 16:50; Status DC Midazolam HCl 2 mg STK-MED ONCE .ROUTE; Start 03/09/24 at 17:13; Stop 03/09/24 at 17:14; Status DC Heparin Sodium/ Sodium Chloride 500 ml @ As Directed STK-MED ONCE IV; Start 03/09/24 at 17:16; Stop 03/09/24 at 17:16; Status DC Atropine Sulfate 1 mg STK-MED ONCE IVP; Start 03/09/24 at 17:18; Stop 03/09/24 at 17:18; Status DC Iohexol 35,000 mg STK-MED ONCE IV; Start 03/09/24 at 17:28; Stop 03/09/24 at 17:34; Status DC Aspirin 325 mg STK-MED ONCE PO; Start 03/09/24 at 17:59; Stop 03/09/24 at 18:00; Status DC Clopidogrel Bisulfate 300 mg STK-MED ONCE .ROUTE; Start 03/09/24 at 17:59; Stop 03/09/24 at 18:00; Status DC Sodium Chloride 1,000 ml @ 100 mls/hr Q10H IV Last administered on 03/09/24at 21:32; Start 03/09/24 at 18:30; Stop 03/10/24 at 00:29; Status DC Aspirin 81 mg DAILY PO; Start 03/10/24 at 09:00; Stop 03/12/24 at 07:45; Status DC Clopidogrel Bisulfate 75 mg DAILY PO; Start 03/10/24 at 09:00; Stop 04/09/24 at 08:59 Isosorbide Mononitrate 60 mg DAILY PO Last administered on 03/11/24at 09:02; Start 03/10/24 at 09:00; Stop 04/09/24 at 08:59 Labetalol HCl 20 mg STK-MED ONCE IV; Start 03/09/24 at 18:03; Stop 03/09/24 at 18:04; Status DC Sodium Chloride 1 SPRAY ONCE ONCE NS Last administered on 03/09/24at 23:50; Start 03/09/24 at 23:30; Stop 03/09/24 at 23:36; Status DC PHYSICAL EXAMINATION: GENERAL: No acute distress. HEENT: Normocephalic, atraumatic. CARDIAC: Positive S1 and S2. No murmurs. LUNGS: Clear to auscultation bilaterally. ABDOMEN: Bowel sounds present, soft, nontender. EXTREMITIES: No edema bilaterally. Right groin reveals minimal ecchymosis soft slightly tender NEUROLOGIC: Cranial nerves 2-12 grossly intact. PSYCHIATRIC: Calm. TELEMETRY: Sinus rhythm ASSESSMENT: Non ST segment elevation myocardial infarction status post intervention to RCA and PDA Residual stenosis involving left circumflex and LAD pending intervention for 03/12/2024 PLAN: Proceed with intervention to circumflex vessel and left anterior descending artery later today. Risks and goals of procedure has been discussed with patient. Patient is willing to proceed. All questions have been answered. If all goes as planned probable discharge home in a.m.. ROBE MAHAN MD Mar 12, 2024 08:13
--- NOTE | 2024-03-12 13:32 | PN ---
[facility] PROGRESS NOTE Date Patient Seen: Mar 12, 2024 Time of Visit: 1023 Supervising Physician: Dr. Mckenna Primary Care Physician: PETRA HICKS MD (PCP) Outpatient Specialists: Dr. Carlo Bassett. Inpatient Consults: [facility] PROBLEM LIST: ACS-NSTEMI, POA s/p left heart catheterization 03/09/2024 Hypertension emergency, POA Atrial fibrillation, POA Coronary artery disease s/p CABG Hypercholesteremia CAD s/p PCI with MOY placement 01/21/2014 INTERVAL HISTORY: 03/08 patient was seen and examined by bedside with family present. Patient is awake alert able to answer simple questions appropriately. At time of visit patient is on room air appears to be tolerating well. Patient denies any reoccurrence chest pain, denies any shortness of breadth. Patient is troponin level noted to be trending down peaked at 5138 and now trended down to 3362. Patient to continue on heparin drip. As per Cardiology plan is for a left heart catheterization with possible intervention scheduled tomorrow 01/08/2024. Appreciate cardiology's assistance we will follow recommendations. 03/09 Patient was seen and examined at bedside no family present. At time of visit patient denies any reoccurrence chest pain denies shortness of breadth. Denies nausea vomiting abdominal pain. Patient is scheduled for left heart catheterization with possible intervention today. We will follow up with results and continue to follow recommendations from Cardiology. Patient to continue on dual antiplatelet therapy beta-citlaly statin and Arb, and heparin drip per cardiology's recommendations. As per primary nurse no acute events to be reported 03/10 patient was seen and examined at bedside no family present. Patient had left heart catheterization done yesterday. Recommendations from Cardiology continue dual antiplatelet therapy with a weekend schedule patient to proceed with planned intervention to the circumflex with possible doing the LAD as an outpatient. At time of visit patient denies chest pain or shortness of breadth. Denies nausea vomiting or abdominal pain. As per primary nurse no acute events to be reported. We will continue to monitor closely 03/11 patient was seen and examined at bedside no family present. Patient is scheduled for plan intervention to the circumflex on 03/12/2024 with possible LAD intervention as an outpatient. Patient's at time of visit has no specific complaints. Patient has remained hemodynamically stable. Patient to continue on dual antiplatelet therapy. We will continue to follow recommendations from Cardiology. As per primary nurse no acute events to be reported 03/12 patient was seen and examined by bedside with no family present. As per Cardiology patient is scheduled for intervention to the circumflex vessel and left anterior descending artery later today were singles procedure been discussed with patient patient is willing to proceed. Appreciate cardiology's assistance we will continue to recommendations. Patient's at time of visit denies any chest pain or shortness of breadth. Denies nausea abdominal pain. Patient to continue dual antiplatelet therapy beta-citlaly statin and Arb. Repeat patient's labs tomorrow morning and continue to monitor patient closely REVIEW OF SYSTEMS: 12 point ROS reviewed with patient. Pertinent positives mentioned above. Otherwise negative. PHYSICAL EXAM: GENERAL: alert, weak, awake oriented x 3 HEENT: EOMI, Sclera non icteric, moist mucosa NECK: Supple, no JVD, trachea midline LUNGS: Clear breath sounds bilaterally. No wheezes HEART: Regular rate and rhythm. Normal S1 and S2, without murmurs ABD: Abdomen soft, nontender. Bowel sounds present EXT: No clubbing cyanosis or edema NEURO: Alert and oriented x3, follows commands Vital Signs (last 8hr) Date Time Temp Pulse Resp B/P (MAP) Pulse Ox O2 Delivery O2 Flow Rate FiO2 03/12/24 12:40 97.9 93 18 103/50 100 Room Air 03/12/24 12:40 97.9 77 16 113/56 95 Room Air 03/12/24 09:39 96 Room Air* 0 21 03/12/24 08:13 98.2 80 16 134/72 94 Room Air LABS: Hematology Labs: Test 03/12/24 03:54 Range/Units White Blood Count 8.0 4.8-10.8 K/uL Red Blood Count 3.23 L 4.00-5.50 MIL/uL Hemoglobin 9.3 #L 12.0-16.0 g/dL Hematocrit 29.0 #L 36-48 % Mean Corpuscular Volume 89.8 79-99 fL Mean Corpuscular Hemoglobin 28.8 27.0-33.0 pg Mean Corpuscular Hemoglobin Concent 32.1 32.0-36.0 g/dL Red Cell Distribution Width 13.2 11.0-15.5 % Platelet Count 192 130-400 K/uL Mean Platelet Volume 11.4 H 7.5-10.5 fL Nucleated Red Blood Cells 0.0 0.0-0.19 % Chemistry Labs: Test 03/12/24 11:50 03/12/24 03:54 03/11/24 20:13 Range/Units Whole Blood Glucose 131 H 70-110 MG/DL Sodium Level 143 136-145 mmol/L Potassium Level 3.7 3.5-5.1 mmol/L Chloride Level 110 101-111 mmol/L Carbon Dioxide Level 26 21-32 mmol/L Blood Urea Nitrogen 23 H 7-18 mg/dL Creatinine 0.8 0.5-1.0 mg/dL Glomerular Filtration Rate Calc 74 >90 mL/min Random Glucose 118 H 70-105 mg/dL Total Calcium 8.7 8.5-10.1 mg/dL Bedside Glucose Comment Notified Nurse Coagulation Labs: Test 03/12/24 03:54 Range/Units Prothrombin Time 10.9 9.6-11.6 SEC Prothromb Time International Ratio 1.01 0.85-1.15 Activated Partial Thromboplast Time 27.8 26.3-35.5 SEC DIAGNOSTICS / RADIOLOGY RESULTS: na PLAN Scheduled for intervention to the circumflex vessel and left anterior descending arterial later today by Cardiology 03/12/2024 Continue tele monitoring Nitroglycerin 1 inch to chest wall q.8 hours. Continue [id number] mg daily Continue [id number] mg daily Atorvastatin 40 mg p.o. daily. As per cardiology continue dual antiplatelet therapy over the weekend schedule patient to proceed with planned intervention to circumflex on 03/12/24 with possibility doing the LAD as an outpatient P.r.n. medications for pain management, fever, nausea, vomiting, constipation, hypertension. Oxygen supplementations as needed to maintain oxygen levels equal to or greater than 92%. Blood pressure checks every4 hours and as needed. Continue to follow recommendations from Cardiology NEURO: Minimize central acting medications as possible. Maintain fall precautions, adequate lighting during the day PULMONARY: Supplemental 02 as needed. Maintain aspiration precautions at all times CARDIOVASCULAR: Follow hemodynamics. Vital signs per facility protocol GI & NUTRITION: Continue with nutritional support. Continue stool softeners and laxatives as needed. KIDNEYS & ELECTROLYTES: Strict monitoring of intake, output and overall fluid balance. Avoid nephrotoxic medications to the extent possible. Medications to be dosed according to renal function. Monitor electrolytes and replace as needed ENDOCRINE: Maintain blood glucose between 100-180 at all times. Hypoglycemia protocol in place INFECTIOUS DISEASE: Trend temperature, WBC and procalcitonin level Follow cultures, deescalate antibiotics as soon as possible. Panculture if new onset fever ONCOLOGY/HEMATOLOGY/COAGULATION: Monitor for s/s of bleeding Monitor hemoglobin, coagulation studies as needed SKIN: Pressure ulcer prevention per facility protocol Specialty mattress ORTHO/REHAB: Continue PT/OT Prophylaxis: Continue GI and DVT prophylaxis Code Status: Full Resuscitation Disposition: TBD Critical care time spent with patient 35 minutes Case discussed with supervising physician plan of care agreed upon MACKENZIE SIMON Mar 12, 2024 13:32
[2024-03-12] MEDS ORDERED: HEParin-NS 1,000 UNIT/500 ML 1,000 ML IV ONE (14:19)
[2024-03-12] MEDS ORDERED: LIDOCAINE HCL 400MG/20ML VIAL ONE (14:19)
[2024-03-12] MEDS ORDERED: BIVALIRUDIN 250 MG/VIAL IV ONE (14:19)
[2024-03-12] MEDS ORDERED: HEParin 10,000 UNIT/10ML (1,000 UNIT/ML) VIAL ONE (14:19)
[2024-03-12] MEDS ORDERED: IOHEXOL 350 MG/ML 100ML INFUS..BTL IV ONE (14:20)
[2024-03-12] MEDS ORDERED: NITROGLYCERIN 50MG VIAL ONE (14:20)
[2024-03-12] MEDS ORDERED: MIDAZOLAM HCL 1 MG/ML 2ML VIAL ONE (15:00)
[2024-03-12] MEDS ORDERED: FENTanyl CITRate PF 50 MCG/1 ML 2ML VIAL ONE (15:00)
[2024-03-12] MEDS ORDERED: LAbetaLOL 20MG SYG IV ONE (16:09)
--- NOTE | 2024-03-12 16:22 | PRN ---
PROCEDURES: 1. Right common femoral arterial sheath placement. 2. Angioplasty and stent placement to mid and distal left circumflex with the use of a 2.75 mm x 38 mm paulo Finley stent deployed to 2.75 mm 3. Primary stent placement to distal LAD with the use of a 2.5 mm x 15 mm Finley paulo stent deployed to 2.50 mm 4. Placement of a 2.75 mm by 18 mm paulo Finley stent deployed to 2.85 mm in the proximal mid LAD INDICATION: Non ST segment elevation myocardial infarction Unstable angina INTERVENTIONAL REPORT: Patient was brought to catheterization suite and prepped and draped in sterile fashion. An IV was started already in place in both groins were exposed for arterial access. 2% lidocaine was used for local anesthesia in the near micro puncture kit was used to gain access and once free flow blood was seen modified Seldinger technique was utilized to place a six [place] sheath into the right common femoral artery. Next a choice PT extra-support wire 0.014 in was then placed on distal ongoing left circumflex vessel. Next a 2.5 mm x 20 mm U4 balloon was then used to pre dilate the mid and distal left circumflex and in overlapping fashion up to 2.73 mm. In the mid and distal left circumflex. This was done x2 inflations. Next a 2.75 mm x 38 mm paulo Finley stent was then placed into the mid and distal left circumflex and deployed to 2.75 mm. Next a different choice PT extra-support wire was then placed on distal apical LAD under fluoroscopic guidance as previous wire had had a tip that would not go into the LAD and had a misshapen distal end which was not amenable to reshaping. Therefore this was done and then a 2.5 mm x 15 mm paulo Finley stent was then placed in the apical LAD to the lesion in this region at 75-80% and deployed to 2.50 mm. This delivery balloon was then brought back into the in stent restenosis in the mid LAD and proximal LAD and deployed to 2.75 mm. Next a 2.75 mm x 18 mm paulo Finley stent was then placed in the proximal and mid LAD for InStent restenosis in also [place] LAD stenosis and was deployed to 2.85 mm. Follow up contrast injected with no evidence of dissection or perforation. At the end of case sheath was sewn into place and no complications occurred. RECOMMENDATIONS: Continue with dual antiplatelet therapy Probable discharge in ROBE Santana MD Mar 12, 2024 16:22
[2024-03-12] MEDS: 0.9%NACL 1000ML 1,000 ML IV SCH (16:50)
[2024-03-13 03:25] VITALS: BP 131/59; PULSE 72; RESP 16; TEMP 98.5
[2024-03-13 07:45] VITALS: BP 148/77; PULSE 61; RESP 18; TEMP 98.2
[2024-03-13 08:10] VITALS: O2SAT 97
[2024-03-13 08:30] LABS: CREATININE 0.7 mg/dL (0.5-1.0); MAGNESIUM 1.9 mg/dL (1.80-2.40); POTASSIUM 4.1 mmol/L (3.5-5.1)
[2024-03-13] MEDS: MAGNESIUM 2GM PREMIX 50ML 50 ML IV ONE (08:55)
--- NOTE | 2024-03-13 09:19 | PN ---
[facility] PROGRESS NOTE Date Patient Seen: Mar 13, 2024 Time of Visit: 09:17 Supervising Physician: THOMAS ROJO MD Primary Care Physician: PETRA HICKS MD (PCP) Outpatient Specialists: Dr. Carlo Bassett. Inpatient Consults: [facility] PROBLEM LIST: ACS-NSTEMI, POA s/p left heart catheterization 03/09/2024 Hypertension emergency, POA ,IMPROVED Atrial fibrillation, POA Coronary artery disease s/p CABG Hypercholesteremia CAD s/p PCI with MOY placement 01/21/2014 INTERVAL HISTORY: REVIEW OF SYSTEMS: 12 point ROS reviewed with patient. Pertinent positives mentioned above. Otherwise negative. PHYSICAL EXAM: GENERAL: alert, weak, awake oriented x 3 HEENT: EOMI, Sclera non icteric, moist mucosa NECK: Supple, no JVD, trachea midline LUNGS: Clear breath sounds bilaterally. No wheezes HEART: Regular rate and rhythm. Normal S1 and S2, without murmurs ABD: Abdomen soft, nontender. Bowel sounds present EXT: No clubbing cyanosis or edema NEURO: Alert and oriented x3, follows commands Vital Signs (last 8hr) Date Time Temp Pulse Resp B/P (MAP) Pulse Ox O2 Delivery O2 Flow Rate FiO2 03/13/24 07:45 98.2 61 18 148/77 99 Room Air 03/13/24 03:25 98.4 72 16 131/59 94 Room Air LABS: Hematology Labs: Test 03/12/24 03:54 Range/Units White Blood Count 8.0 4.8-10.8 K/uL Red Blood Count 3.23 L 4.00-5.50 MIL/uL Hemoglobin 9.3 #L 12.0-16.0 g/dL Hematocrit 29.0 #L 36-48 % Mean Corpuscular Volume 89.8 79-99 fL Mean Corpuscular Hemoglobin 28.8 27.0-33.0 pg Mean Corpuscular Hemoglobin Concent 32.1 32.0-36.0 g/dL Red Cell Distribution Width 13.2 11.0-15.5 % Platelet Count 192 130-400 K/uL Mean Platelet Volume 11.4 H 7.5-10.5 fL Nucleated Red Blood Cells 0.0 0.0-0.19 % Chemistry Labs: Test 03/13/24 08:12 03/13/24 05:54 03/11/24 20:13 Range/Units Sodium Level 141 136-145 mmol/L Potassium Level 4.1 3.5-5.1 mmol/L Chloride Level 108 101-111 mmol/L Carbon Dioxide Level 25 21-32 mmol/L Blood Urea Nitrogen 14 7-18 mg/dL Creatinine 0.7 0.5-1.0 mg/dL Glomerular Filtration Rate Calc 87 >90 mL/min Random Glucose 115 H 70-105 mg/dL Total Calcium 9.5 8.5-10.1 mg/dL Magnesium Level 1.90 1.80-2.40 mg/dL Whole Blood Glucose 102 70-110 MG/DL Bedside Glucose Comment Notified Nurse Coagulation Labs: Test 03/12/24 03:54 Range/Units Prothrombin Time 10.9 9.6-11.6 SEC Prothromb Time International Ratio 1.01 0.85-1.15 Activated Partial Thromboplast Time 27.8 26.3-35.5 SEC DIAGNOSTICS / RADIOLOGY RESULTS: [ ] PLAN Continue tele monitoring Nitroglycerin prn Continue [id number] mg daily Continue [id number] mg daily Atorvastatin 40 mg p.o. daily. As per cardiology continue dual antiplatelet therapy over the weekend schedule patient to proceed with planned intervention to circumflex on 03/12/24 with possibility doing the LAD as an outpatient P.r.n. medications for pain management, fever, nausea, vomiting, constipation, hypertension. Oxygen supplementations as needed to maintain oxygen levels equal to or greater than 92%. Blood pressure checks every4 hours and as needed. Continue to follow recommendations from Cardiology NEURO: Minimize central acting medications as possible. Maintain fall precautions, adequate lighting during the day PULMONARY: Supplemental 02 as needed. Maintain aspiration precautions at all times CARDIOVASCULAR: Follow hemodynamics. Vital signs per facility protocol GI & NUTRITION: Continue with nutritional support. Continue stool softeners and laxatives as needed. KIDNEYS & ELECTROLYTES: Strict monitoring of intake, output and overall fluid balance. Avoid nephrotoxic medications to the extent possible. Medications to be dosed according to renal function. Monitor electrolytes and replace as needed ENDOCRINE: Maintain blood glucose between 100-180 at all times. Hypoglycemia protocol in place INFECTIOUS DISEASE: Trend temperature, WBC and procalcitonin level Follow cultures, deescalate antibiotics as soon as possible. Panculture if new onset fever ONCOLOGY/HEMATOLOGY/COAGULATION: Monitor for s/s of bleeding Monitor hemoglobin, coagulation studies as needed SKIN: Pressure ulcer prevention per facility protocol Specialty mattress ORTHO/REHAB: Continue PT/OT Prophylaxis: Continue GI and DVT prophylaxis Code Status: Full Resuscitation Disposition: TBD Critical care time spent with patient 35 minutes Case discussed with supervising physician plan of care agreed upon LAUREL ARREOLA Mar 13, 2024 09:19
[2024-03-13 11:53] VITALS: BP 140/66; PULSE 81; RESP 16; TEMP 97.9
--- NOTE | 2024-03-13 12:29 | NUR ---
A total of four cardiac stent cards were provided to patient and daughter Shira at beside, copies placed in chart.
[2024-03-13] MEDS ORDERED: LOSA-420 PO (12:31)
[2024-03-13] MEDS ORDERED: METO50TA9 PO (12:31)
[2024-03-13] MEDS ORDERED: CLOP75TA32 PO (12:31)
--- NOTE | 2024-03-13 13:52 | NUR ---
As per Dr. Carlo Bassett, patient is clear for discharge and needs script for Aspirin and Plavix prior to discharge. Erica COOPER aware.
--- NOTE | 2024-03-13 14:04 | DS ---
[facility] DISCHARGE SUMMARY Date Patient Seen: Mar 13, 2024 Time of Visit: 13:36 Supervising Physician: DR THOMAS ROJO Primary Care Physician: PETRA HICKS MD (PCP) Outpatient Specialists: Dr. Carlo Bassett. Inpatient Consults: [facility] PROBLEM LIST: ACS-NSTEMI, CAD w Coronary angiogram revealing significant stenosis involving RCA circumflex and LAD status post extensive RCA intervention to the mid and distal RCA e xtending into the PDA please see separate report - s/p MOY placement (Promus 2.5x24 mm) done on 01/10/2014 - s/p Placement of a 2.75 mm by 18 mm paulo Ware stent deployed to 2.85 mm in the proximal mid LAD, Primary stent placement to distal LAD with the use of a 2.5 mm x 15 mm [place] paulo stent deployed to 2.50 mm ,stent placement to mid and distal left circumflex with the use of a 2.75 mm x 38 mm paulo Ware stent deployed to 2.75 mm Hypertension emergency, POA resolved AFIB ruled out Coronary artery disease s/p CABG Hypercholesteremia CAD s/p PCI with MOY placement 01/21/2014 HOSPITAL COURSE: This is the case of an 83 year old woman with pmh of htn, hld and CAD with hx of prior stent that expereicned left sided chest pain radiating to her back while she was walking outside to throw out her garbage and therefore called 911. EMS arrived and had SBP of 230mmHg and was given nitroglycerin that relieved her discomfort. Patient has apparent hx of Afib as per H/p However is SR on records and [facility] [employer] does not make mention of it on their notes, REcords were requested for further review. Patient only on Asprin, statin, Metoprolol and losartan at home. She was evaluated in ED and initial troponin at 136 , EKG revealing SR x 2 and Cardiology consulted. Cardiac enzymes-HS troponin I: [id number]. She was initiated on aspirin 81 mg daily, clopidogrel 300 mg x 1 followed by 75 mg daily, IV heparin infusion (ACS protocol), metoprolol succinate 50 mg daily, nitro ointment Q8H, and atorvastatin 40 mg QHS . arranged for [facility] to further evlauate her symptoms. She underwent left heart catheterization 03/09/2024 with the angioplasty and stent placement to the mid to distal RCA in an overlapping fashion and primary stenting to the distal RCA into the RPDA due to 7% mid RCA stenosis and 95% distal RCA stenosis. Cardiology decided to go proceed with stepwise approach for her intervention - a second procedure was done as stated above and had L circumflex and LAD stented . Post procedure no complications. BP improved . Medication reconciliation with patient at bedside , new scripts sent to pharmacy . Daughter at bedside, all questions answered. FU appt with PCP and DR. Bassett . New Medications: Losartan Potassium (Cozaar) 100 Mg Tablet 100 MG PO DAILY17, #30 TAB Metoprolol Succinate (Toprol Xl) 50 Mg Tab.er.24h 50 MG PO DAILY, #30 TAB Continued Medications: Aspirin (Aspirin 81 Mg Ectab) 81 Mg Ectab 81 MG PO HS, TAB.EC Cholecalciferol (Vitamin D3) (Vitamin D-3) 2,000 Unit Tablet 2000 UNIT PO DAILY, TAB Clopidogrel Bisulfate (Clopidogrel) 75 Mg Tablet 75 MG PO DAILY for 30 Days, #30 TAB (This prescription has been renewed) Cyanocobalamin (Vitamin B-12) (B-12) 1,000 Mcg Tablet.er 1000 MCG PO DAILY, TAB Multivit with Calcium,Iron,Min (Women's Daily Multivitamin) 1 Each Tablet 1 EACH PO DAILY, TAB [place]-3 Fatty Acids/Fish Oil (Fish Oil 1,000 mg Capsule) 1 Each Capsule 1 EACH PO DAILY, CAP Simvastatin (Simvastatin) 20 Mg Tablet 20 MG PO HS, #90 Vitamin E Mixed (Vitamin E) 400 Unit Tablet 400 UNIT PO DAILY, TAB Discontinued Medications: Lisinopril (Lisinopril) 40 Mg Tablet 40 MG PO HS, #90 PHYSICAL EXAM: GENERAL: alert, weak, awake oriented x 3 HEENT: EOMI, Sclera non icteric, moist mucosa NECK: Supple, no JVD, trachea midline LUNGS: Clear breath sounds bilaterally. No wheezes HEART: Regular rate and rhythm. Normal S1 and S2, without murmurs ABD: Abdomen soft, nontender. Bowel sounds present EXT: No clubbing cyanosis or edema NEURO: Alert and oriented x3, follows commands FOLLOW-UP: Follow-up with PCP in 2-[address] Bassett in 7-10 days RECOMMENDATIONS: See Discharge Instructions This case was seen and discussed with my supervising physician. More than 30 mi nutes spent on discharge process, including evaluation of the patient, discussion with nursing staff, medication reconciliation and follow-up appointments LAUREL ARREOLA Mar 13, 2024 14:04
--- NOTE | 2024-03-13 14:08 | PN ---
[facility] CARDIOLOGY PROGRESS NOTE Progress note dictated for Dr. Carlo Bassett Date Patient Seen: Mar 13, 2024 Time of Visit: 14:06 PROBLEM LIST: 03/09/2024 Angioplasty and stent placement to mid distal RCA with overlapping 2.5 mm x 38 mm paulo stent deployed to 2.65 mm and a 2.75 mm x 38 mm paulo stent deployed to 2.75 mm in an overlapping fashion to the mid RCA Primary stent placement to distal RCA into RPDA with the use of a 2.25 mm x 15 mm paulo stent deployed to 2.25 mm initially with the overlapping segment with distal 2.5 mm RCA stent deployed to 2.45 mm 03/12/2024 S/P Angioplasty and stent placement to mid and distal left circumflex with the use of a 2.75 mm x 38 mm paulo [place] stent deployed to 2.75 mm Primary stent placement to distal LAD with the use of a 2.5 mm x 15 mm [place] paulo stent deployed to 2.50 mm Placement of a 2.75 mm by 18 mm paulo [place] stent deployed to 2.85 mm in the proximal mid LAD ACS-NSTEMI Hypertensive emergency CAD s/p PCI with MOY placement (Promus 2.5x24 mm) done on 01/10/2014 HTN HLP Chronically occluded LICA PAD Interval History: This is an 83y/o female with a past medical history of HTN, HLP, CAD s/p PCI with MOY placement (Promus 2.5x24 mm) done on 01/10/2014, chronically occluded LICA, and PAD. The patient is resting comfortably in bed. She denies any chest pressure, chest tightness, shortness of breath, or dizziness. The right groin has a bandage. There is no ecchymosis. The area is soft to palpation and minimally tender. Physical Examination: GENERAL: No acute distress. HEAD: Normocephalic, atraumatic NECK: Supple without JVD. There is no tenderness, lymphadenopathy. ABDOMEN: Bowel sounds present, soft, nontender LUNGS: Clear breath sounds bilaterally. No wheezes, or rhonchi. HEART: Normal rate and rhythm. Normal S1 and S2 without murmurs, gallop or rub. EXT: No clubbing, cyanosis or edema. Right groin reveals minimal ecchymosis, access site is soft slightly tender. Pulses palpable to bilateral DP. NEURO: Awake, alert, and oriented x3. No focal neurological deficits noted. Laboratory: [ ] Hematology Labs: Test 03/12/24 03:54 Range/Units White Blood Count 8.0 4.8-10.8 K/uL Red Blood Count 3.23 L 4.00-5.50 MIL/uL Hemoglobin 9.3 #L 12.0-16.0 g/dL Hematocrit 29.0 #L 36-48 % Mean Corpuscular Volume 89.8 79-99 fL Mean Corpuscular Hemoglobin 28.8 27.0-33.0 pg Mean Corpuscular Hemoglobin Concent 32.1 32.0-36.0 g/dL Red Cell Distribution Width 13.2 11.0-15.5 % Platelet Count 192 130-400 K/uL Mean Platelet Volume 11.4 H 7.5-10.5 fL Nucleated Red Blood Cells 0.0 0.0-0.19 % Chemistry Labs: Test 03/13/24 11:40 03/13/24 08:12 03/11/24 20:13 Range/Units Whole Blood Glucose 137 H 70-110 MG/DL Sodium Level 141 136-145 mmol/L Potassium Level 4.1 3.5-5.1 mmol/L Chloride Level 108 101-111 mmol/L Carbon Dioxide Level 25 21-32 mmol/L Blood Urea Nitrogen 14 7-18 mg/dL Creatinine 0.7 0.5-1.0 mg/dL Glomerular Filtration Rate Calc 87 >90 mL/min Random Glucose 115 H 70-105 mg/dL Total Calcium 9.5 8.5-10.1 mg/dL Magnesium Level 1.90 1.80-2.40 mg/dL Bedside Glucose Comment Notified Nurse Coagulation Labs: Test 03/12/24 03:54 Range/Units Prothrombin Time 10.9 9.6-11.6 SEC Prothromb Time International Ratio 1.01 0.85-1.15 Activated Partial Thromboplast Time 27.8 26.3-35.5 SEC Telemetry: Normal sinus rhythm Assessment: 03/09/2024 Angioplasty and stent placement to mid distal RCA with overlapping 2.5 mm x 38 mm paulo stent deployed to 2.65 mm and a 2.75 mm x 38 mm paulo stent deployed to 2.75 mm in an overlapping fashion to the mid RCA Primary stent placement to distal RCA into RPDA with the use of a 2.25 mm x 15 mm paulo stent deployed to 2.25 mm initially with the overlapping segment with d istal 2.5 mm RCA stent deployed to 2.45 mm 03/12/2024 S/P Angioplasty and stent placement to mid and distal left circumflex with the use of a 2.75 mm x 38 mm paulo [place] stent deployed to 2.75 mm Primary stent placement to distal LAD with the use of a 2.5 mm x 15 mm [place] paulo stent deployed to 2.50 mm Placement of a 2.75 mm by 18 mm paulo [place] stent deployed to 2.85 mm in the proximal mid LAD ACS-NSTEMI Hypertensive emergency CAD s/p PCI with MOY placement (Promus 2.5x24 mm) done on 01/10/2014 HTN HLP Chronically occluded LICA PAD Plan: The patient is doing well after her procedures. Patient will continue on clopidogrel and aspirin. She will continue her home medications of isosorbide, metoprolol, and losartan. From the Cardiology standpoint the patient can be discharged to home. She will follow up as an outpatient in 2 weeks. NEMO AN Mar 13, 2024 14:08
--- NOTE | 2024-03-13 15:50 | NUR ---
Discharge note, Patient was discharged, all discharge documentation and personal items taken by patient and daughter Shira. Patient informed to follow up with primary care provider in 3-[address] Carlo Bassett on 03/30/2024 at 11:10A.M. in [place] office. New scripts sent to [facility] on in [place], Aspirin and Plavix script called in by Joseph COOPER to [facility] for 90 day supply. IV and telemetry pack were removed, patient transported out of facility via wheelchair by [facility] Rosemarie.
== END 2024-03-13 15:55 | disposition home or self-care (01) | DRG 321 ==
LOC: EDH 17:48 → EDHIP 21:33 → 2AH 03-08 14:01
PROVIDERS: ADMIT Internal Medicine Critical Care Medicine; ATTEND Internal Medicine Critical Care Medicine
PROC: 027036Z Dilation of Coronary Artery, One Artery with Three Drug-eluting Intraluminal Devices, Percutaneous Approach (ICD-10-PCS; principal; 2024-03-09)
PROC: 4A023N7 Measurement of Cardiac Sampling and Pressure, Left Heart, Percutaneous Approach (ICD-10-PCS; 2024-03-09)
PROC: B2111ZZ Fluoroscopy of Multiple Coronary Arteries using Low Osmolar Contrast (ICD-10-PCS; 2024-03-09)
DX: T82.855A Stenosis of coronary artery stent, initial encounter (principal); I21.4 Non-ST elevation (NSTEMI) myocardial infarction; I16.1 Hypertensive emergency; I25.110 Atherosclerotic heart disease of native coronary artery with unstable angina pectoris; I48.91 Unspecified atrial fibrillation; I10 Essential (primary) hypertension; E78.00 Pure hypercholesterolemia, unspecified; E11.51 Type 2 diabetes mellitus with diabetic peripheral angiopathy without gangrene; Z79.82 Long term (current) use of aspirin; Z95.1 Presence of aortocoronary bypass graft; Z95.5 Presence of coronary angioplasty implant and graft; Z79.899 Other long term (current) drug therapy; Y83.8 Other surgical procedures as the cause of abnormal reaction of the patient, or of later complication, without mention of misadventure at the time of the procedure; Y92.89 Other specified places as the place of occurrence of the external cause
CPT/HCPCS: 36415; 71045; 80048; 81001; 82550; 82948; 83735; 83880; 84100; 84443; 84484; 85025; 85027; 85610; 85730; 93005; 93306; 93458; 99156; 99157; C1769; C1887; C1894; C9600; C9601; G0378; J0360; J0461; J0583; J1644; J1815; J2250; J3010; J3475; J3490; Q9967; C1725; C1874; Q9965